=== PATIENT | male | born 1940 | race Hispanic/Latino ===

== ENCOUNTER 2024-05-02 14:51 | Emergency (ER) | payer OTHER ==
--- OUTSIDE RECORDS SUMMARY | 2024-05-02 14:54 | XMS REPORT | Clinical Summary ---
Author Name Unknown Organization [facility] Address [address] [place] [address] Care Team Providers Care Animal Husbandry Teacher Name Role Phone Sarita Mackay MD Primary Care Provider [phone] Smita Kruse MD Unavailable [phone] Isabel Finn Unavailable [phone] Елена Cantu MD Unavailable Torin Patel MD Unavailable [phone] Luis Mcghee MD Unavailable [phone] Yash Moran MD Unavailable [phone] Allergies Active Allergy Reactions Criticality Noted Date Comments Rituximab Itching,Rash Medium 10/31/2017 Itching ,rash to chest,face and axilla. Medications * This document contains information received from the source organization and may not represent a complete record from that organization. aspirin 81 mg EC tablet Take 1 tablet (81 mg) by mouth daily. 022 Active latanoprost (XALATAN) 0.005% ophthalmic solution INSTILL 1 DROP INTO LEFT EYE AT BEDTIME Active levothyroxine (SYNTHROID, LEVOTHROID) 125 mcg tablet Take 0.5 tablets (62.5 mcg) by mouth daily. Active diclofenac sodium (Voltaren) 1 % gel Apply 2 g topically to affected area(s) as needed. 023 Active Eliquis 5 mg tabletIndications :Atrial fibrillation, not otherwise specified TAKE 1 TABLET BY MOUTH EVERY 12 HOURS. 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 10 tablet 024 2024 Active Additional Information Patient not taking.Reason: No longer taking, Informant: Spouse/Significant Other, Reported on 04/29/2024 ciclopirox (PENLAC) 8% solution APPLY AROUND AND UNDER NAILS NIGHTLY AND WASH OFF IN THE MORNING Active urea (CARMOL) 20% cream APPLY TO FEET ONCE DAILY Active icosapent ethyl 1 gram cap Take 2 g by mouth twice daily. Active cholecalciferol, vitamin D3, (Decara) 625 mcg (25,000 unit) cap Take 2,500 Units by mouth every 14 (fourteen) days. Active tamsulosin (FLOMAX) 0.4 mg 24 hr capsule Take 1 capsule (0.4 mg) by mouth daily. Active pitavastatin calcium 4 mg tab Take 4 mg by mouth daily. Active losartan (COZAAR) 50 mg tablet Take 1 tablet (50 mg) by mouth daily. Active finasteride (PROSCAR) 5 mg tablet Take 1 tablet (5 mg) by mouth daily. Active olmesartan (BENICAR) 40 mg tablet Take 1 tablet (40 mg) by mouth daily. 2023 Discontinued(S top Taking at Discharge) ergocalciferol (DRISDOL) 50,000 units capsule Take 1 capsule (50,000 Units) by mouth every 14 (fourteen) days. 2023 Discontinued(T herapy completed) cholecalciferol, vitamin D3, (VITAMIN D3 ORAL) Take 2,500 Units by mouth once a week. 2024 Discontinued(D uplicate order) Vascepa 1 gram cap Icosapent 022 2024 Discontinued(D uplicate order) LORazepam (ATIVAN) 0.5 mg tablet TAKE 1/2 TO 1 TABLET BY MOUTH EVERY DAY NEEDED 023 2023 Discontinued(S top Taking at Discharge) coenzyme [id number] E 100-5 mg-unit cap Take 1 capsule by mouth daily. 2023 Discontinued(S top Taking at Discharge) amLODIPine (NORVASC) 5 mg tabletIndications :Essential (primary) hypertension Take 1 tablet (5 mg) by mouth daily. 30 tablet 6 023 2023 Discontinued(T herapy completed) pravastatin (PRAVACHOL) 40 mg tabletIndications :Dyslipidemia TAKE 1 TABLET BY MOUTH DAILY 90 tablet 1 023 2023 Discontinued(S top Taking at Discharge) hydroCHLOROthiazi de (HYDRODIURIL) 25 mg tabletIndications :Essential (primary) hypertension,Morgan a of lower extremity Take 1 tablet (25 mg) by mouth daily. 30 tablet 6 023 2023 Discontinued(T herapy completed) apixaban (Eliquis) 5 mg tabletIndications :Atrial fibrillation, not otherwise specified Take 1 tablet (5 mg) by mouth every 12 (twelve) hours. 180 tablet 1 023 2023 Discontinued(R eorder) apixaban (Eliquis) 5 mg tabletIndications :Atrial fibrillation, not otherwise specified Take 1 tablet (5 mg) by mouth every 12 (twelve) hours. 180 tablet 024 2023 Discontinued donepezil (ARICEPT) 10 mg tablet 1 TABLET DAILY 024 2023 Discontinued(S top Taking at Discharge) mecobalamin (B12 ACTIVE ORAL) Take 3,000 mg by mouth daily. 2023 Discontinued(S top Taking at Discharge) donepeziL (ARICEPT ODT) 10 MG disintegrating tablet Dissolve 1 tablet (10 mg) on the tongue at bedtime. 2023 Discontinued(S top Taking at Discharge) cyanocobalamin, vitamin B-12, (cyanocobalamin,v it B-12,,bulk,) powd Take 3,000 mcg by mouth. 2024 Discontinued(D uplicate order) Active Problems Problem Noted Date Diagnosed Date Dementia in other diseases classified elsewhere, mild 04/12/2024 Bradycardia 04/10/2024 Hyperbilirubinemia 04/10/2024 Blood coagulation disorder 04/10/2024 B-type natriuretic peptide above reference range 04/10/2024 Hypothyroidism 04/10/2024 Benign prostatic hyperplasia 04/10/2024 Chronic atrial fibrillation 12/22/2023 Assessment & Plan (12/22/2023 2:25 PM CDT): Patient has history of chronic atrial fibrillation. He is not on any AV swathi blocking agents. EKG done in May 2023 and again today showed atrial fibrillation with ventricular rates in the 50s. Remains on Eliquis for anticoagulation purposes. Ventricular rate appears to remain stable and has not required any AV node blocking agents. Continue Eliquis 5 mg BID Peripheral vascular disease 06/23/2023 Assessment & Plan (06/23/2023 11:07 AM SUPPLY TECHNICIAN): Patient with known mild bilateral carotid artery stenosis. Asymptomatic. Continue aspirin and statin. Below-knee PDA status post PTCA February 2022. Has done well since then. Dual antiplatelet therapy used for 6 months. Continue medical therapy with aspirin/statin. Edema of lower extremity 06/23/2023 Assessment & Plan (12/22/2023 2:33 PM CDT): Patient with chronic, minimal lower extremity/ankle edema. Findings suggestive of chronic venous insufficiency related edema. Pt/ report the swelling has resolved since exercising a few days each week. Encouraged to keep legs elevated while sitting and wear compression stockings. Assessment & Plan (06/23/2023 11:11 AM SUPPLY TECHNICIAN): Minimal pitting edema per-ankle area. Chronic skin changes highly suggestive of chronic venous insufficiency related edema. I advised patient and his to use compression stockings. Permanent atrial fibrillation 12/11/2022 Assessment & Plan (06/23/2023 11:08 AM SUPPLY TECHNICIAN): Asymptomatic. Adequate ventricular rate control during episodes of A-fib. No indication for AV blocking agents. Continue apixaban 5 mg twice daily. Assessment & Plan (12/11/2022 11:08 AM CDT): Patient recently diagnosed on EKG 11/13/2022 with atrial fibrillation in the 50s. Asymptomatic for palpitations with reported heart rates in the 50s and low 60s at home. Continue full dose anticoagulation with Eliquis 5 mg p.o. twice daily for [id number] score of 4 (age x 2, CAD/PAD, HTN) Occlusion and stenosis of bilateral carotid julieta kathryn 12/11/2022 Assessment & Plan (12/11/2022 11:09 AM CDT): Patient with known history of peripheral vascular disease being followed by an outside provider. Continue pravastatin 40 mg daily. When patient returns in 6 months we will update lipid panel to see if any titration needs to be done to his statin therapy. Essential (primary) hypertension 10/26/2018 Assessment & Plan (12/22/2023 2:32 PM CDT): Recently, the patient was admitted to an outside facility with COVID-19 and hypotension. Over the past 4 weeks, states that the local PCP instructed them to stop all of his antihypertensive medications. The also stopped his statin therapy because she thought it could lower the blood pressure. states BP readings have been normal since being off of all antihypertensive meds over the past 4 weeks. States SBP has been around 111, 112, and the highest SBP 126. BP was elevated in our clinic today at 153/92; was shocked to see that the reading was elevated today. states K+ has been on the low side and he is taking K-Dur. Patient/ will continue to monitor daily BP and keep a log. They request our team manages his BP going forward. Ok to stay off Norvasc and HCTZ since BP has been normal at home x 4 weeks since recent hospitalization. Encouraged patient/ to resume Benicar 40 mg; 1/2 tablet (20 mg) daily if BP consistently >140/80 Encouraged patient to resume statin as this will not affect his BP readings (hx PAD). Will follow-up in 2 weeks for telemedicine visit to review his BP log; will be present for the visit. Assessment & Plan (06/23/2023 11:10 AM SUPPLY TECHNICIAN): Well-controlled. Continue amlodipine 5 mg daily, olmesartan 40 mg and hydrochlorothiazide 25 mg once daily. Plan for metabolic panel to assess electrolytes/renal function and also lipid profile during return visit to MD Pisano in July 2023. Patient is otherwise will be scheduled for routine follow-up in 6 months. Assessment & Plan (12/11/2022 11:07 AM CDT): Well-controlled blood pressure in the 120s on amlodipine 5 mg (patient takes half a tablet twice daily), hydrochlorothiazide 25 mg daily and olmesartan 40 mg daily. Continue current regimen. Assessment & Plan (11/13/2021 2:27 PM CDT): BP was mildly elevated in the clinic today at 154/74. At home, patient reports good BP control with average SBP around 130. Patient will continue his current regimen of bisoprolol hydrochlorothiazide 5-6.25 mg daily, Benicar 40 mg daily, and Norvasc 5 mg daily. Patient instructed to call our clinic if his BP consistently is >140/80. Assessment & Plan (11/13/2020 10:03 AM CDT): Home blood pressure readings are 130-150 systolic on current medications. He is recommended to continue monitoring his home blood pressures and if they are persistently > 140/80, he is requested to notify our office for management changes. I recommend to continue his current regimen of bisoprolol HCT 5-6.25 mg 1 tab p.o. daily and Benicar 40 mg p.o. daily. No refills needed at this time Assessment & Plan (11/12/2019 12:37 PM CDT): His BP is stable on current medications, but it is on high side of normal. Instructed to continue to monitor his BP. If it should run more > 140/80, then he is to notify our office and will need to titrate his medications for better BP control. Dyslipidemia 10/26/2018 Carotid atherosclerosis 10/26/2018 Assessment & Plan (11/13/2021 2:24 PM CDT): Carotid Doppler done October 2019 showed stable disease. Patient remains asymptomatic. Lipid panel done earlier today revealed an LDL of 77. Triglycerides were 235. Patient was started on Vascepa by his PCP last week. Carotid Dopplers done today are pending results. Continue Livalo 4 mg; 1/2 tab daily and Vascepa which was just ordered by his PCP last week. We will call the patient with his carotid Dopplers results. Will recheck carotid Dopplers on a yearly basis. Assessment & Plan (11/13/2020 10:01 AM CDT): Carotid artery duplex performed 11/10/2019 shows stable disease with no changes from doppler done in the prior year. Patient remains asymptomatic as well. Will plan for fasting lipid panel to be done at his follow up visit and repeat carotid duplex study. I recommend to continue his current management with aspirin 81 mg p.o. every other day, bisoprolol HCT 5-6.25 mg 1 tab p.o. daily, Benicar 40 mg p.o. daily, Livalo 4 mg p.o. daily Assessment & Plan (11/12/2019 12:35 PM CDT): Recent carotid doppler shows no change from doppler done 1 year ago. Patient remains asymptomatic as well. Will continue with medical management with aspirin 81 mg daily and pitavastatin 4 mg daily. Assessment & Plan (10/26/2018 9:16 AM CDT): Asymptomatic noted carotid atherosclerosis by CT scan done in the setting of management of lymphoma. Recommend: -Control hypertension -Obtain carotid duplex study to assess hemodynamic significance of the noted atherosclerotic plaques. -Statin and low-dose aspirin for primary prevention will likely be needed. Dosing and frequency would be decided after reviewing his carotid duplex study and also his recent lipid profile obtained by PCP. Bicuspid aortic valve 10/26/2018 Assessment & Plan (11/13/2021 2:29 PM CDT): Echocardiogram done in 2018 showed possible bicuspid aortic valve. Echocardiogram done today showed normal LVEF 58% and the aortic valve was noted to be trileaflet with no AI or . EKG done today showed sinus bradycardia 59 bpm with chronic first-degree AVB and QTcF 460 ms. Patient/ report his BP has been stable at home; average SBP around 130. Will check echo in 1 year. Assessment & Plan (11/13/2020 9:59 AM CDT): Echocardiogram done in 2018 shows findings consistent with possible bicuspid aortic valve with mild aortic valve thickening. He remains asymptomatic at this time. Will plan for repeat echocardiogram to be done at his follow up visit with fasting lipid panel. I recommend to continue his current management with aspirin 81 mg p.o. every other day, bisoprolol HCT 5-6.25 mg 1 tab p.o. daily, Benicar 40 mg p.o. daily, Livalo 4 mg p.o. daily Assessment & Plan (10/26/2018 9:03 AM CDT): Suspected bicuspid aortic valve based on the prior echocardiogram from 2018. No evidence of valvular dysfunction and no evidence of aortic root dilatation or aneurysmal aorta. Observe. 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 Date Type Department Care Team Description 04/30/2024 Telephone Cardiopulmonary Center [address] [facility], [facility] [place] [address] Madyson Mensah, CHERIE 04/30/2024 Telephone Cardiopulmonary Center [address] [facility] [place] [address] Andrea Campos RN 04/29/2024 10:30 AM SUPPLY TECHNICIAN Office Visit Internal Medicine Center - Geriatric Medicine [address] [facility], 6th [place] [address] Yash Moran MD Permanent atrial fibrillation (Primary Dx); Dementia in other diseases classified elsewhere, mild; Bradycardia; Carotid atherosclerosis; Peripheral vascular disease; Dyslipidemia; Benign prostatic hyperplasia 04/29/2024 Travel 04/29/2024 Telephone Cardiopulmonary Center [address] [facility] [place] [address] Andrea Campos RN 04/15/2024 9:40 AM SUPPLY TECHNICIAN Consult Cardiopulmonary Center [address] [place] [address], 6th [place] [address] Luis Mcghee MD Bradycardia 04/15/2024 Travel 04/09/2024 5:28 PM SUPPLY TECHNICIAN - 04/12/2024 5:50 PM SUPPLY TECHNICIAN Hospital Encounter MAIN [address] [place] [id number] Bear Edwards MD Phyu, MD Jamshid Guillory Magdelene, MD Tanwir, Hira, MD Bradycardia (Primary Dx); 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, not otherwise specified; Dementia in other diseases classified elsewhere, mild Discharge Disposition: Home 04/09/2024 Travel 04/09/2024 Telephone Cardiopulmonary Center [address] [place] [address], 6th [place] [address] Madyson Mensah, CHERIE 04/09/2024 Documentation Cardiopulmonary Center [address] [place] [address], 6th [place] [address] Madyson Mensah, CHERIE 01/21/2024 2:00 PM CDT Telemedicine Cardiopulmonary Center [address] [place] [address], 6th [place] [address] Damari Ojeda APRN Biju, Maria, APRN,AGACNP Paroxysmal atrial fibrillation (Primary Dx); Essential (primary) hypertension; Peripheral vascular disease; Dyslipidemia; Occlusion and stenosis of bilateral carotid arteries 12/22/2023 9:25 AM CDT - 12/22/2023 11:59 PM CDT Hospital Encounter Cardiopulmonary Center [address] [place] [address], 6th [place] [address] Damari Ojeda APRN Paroxysmal atrial fibrillation Discharge Disposition: Home 12/22/2023 8:00 AM CDT Follow-Up Cardiopulmonary Center [address] [place] [address], 6th [place] [address] Torin Patel MD Bailey, Katie, APRN Atrial fibrillation, not otherwise specified (Primary Dx); Essential (primary) hypertension; Edema of lower extremity 12/22/2023 Travel 08/12/2023 2:00 PM CDT Follow-Up Lymphoma and Myeloma Center [facility] Main [facility], 6th [place] [address] Елена Cantu MD 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, not otherwise specified 08/12/2023 9:02 AM CDT - 08/12/2023 11:59 PM CDT Hospital Encounter Main CT IMAGING [address] [facility] Main [facility], 3rd [place] [address] Florin Mcintyre Aprn, SUPERVISOR ELECTRONICS TESTING 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, not otherwise specified Discharge Disposition: Home 08/12/2023 7:33 AM CDT - 08/12/2023 9:01 AM CDT Hospital Encounter Diagnostic Laboratory Center [address] [place] [address] Main [facility], [place] [address] Florin Mcintyre Aprn, SUPERVISOR ELECTRONICS TESTING 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, not otherwise specified Discharge Disposition: Home 08/12/2023 7:33 AM CDT - 08/12/2023 9:01 AM CDT Hospital Encounter Diagnostic Laboratory Center [address] [place] [address] Main [facility], [place] [address] Kemar Lopez PA Essential (primary) hypertension; Occlusion and stenosis of bilateral carotid arteries Discharge Disposition: Home 08/12/2023 Documentation [facility]oma [facility]el[facility] [address] [place] [address] Main [facility], 6th [place] [address] Zenaida Rosas 08/12/2023 Travel 07/29/2023 Refill Cardiopulmonary Center [address] [place] [address] Main [facility], 6th [place] [address] Torin Patel MD Atrial fibrillation, not otherwise specified 06/23/2023 11:40 AM SUPPLY TECHNICIAN Follow-Up Cardiopulmonary Center [address] [place] [address] Main [facility], 6th [place] [address] Torin Patel MD Paroxysmal atrial fibrillation (Primary Dx); Essential (primary) hypertension; Occlusion and stenosis of bilateral carotid arteries; Edema of lower extremity 06/23/2023 11:06 AM SUPPLY TECHNICIAN - 06/23/2023 11:59 PM SUPPLY TECHNICIAN Hospital Encounter Cardiopulmonary Center [facility] Main [facility], 6th [place] [address] Torin Patel MD Essential (primary) hypertension; Paroxysmal atrial fibrillation Discharge Disposition: Home 06/23/2023 Travel 06/06/2023 Documentation Cardiopulmonary Center [address] [place] [address], 6th [place] [address] Staci Cronin RN 06/06/2023 Refill Cardiopulmonary Center [address] [place] [address], 6th [place] [address] Staci Cronin RN Atrial fibrillation, not otherwise specified after 05/03/2023 Immunizations Name Administration Dates Next Due Pfizer SARS-CoV-2 Vaccination (Purple Cap) 11/25 Surgical History Surgery Date Site/Laterality Comments SKIN LESION EXCISION 04/28/2015 - 04/27/2016 Right Skin lesion behind his right ear positive for skin cancer SKIN LESION EXCISION 04/28/2017 - 04/27/2018 Right Positive for lymphoma LYMPH NODE BIOPSY 04/28/2017 - 04/27/2018 Right Positive for lymphoma TRANSURETHRAL RESECTION OF PROSTATE 04/28/1997 - 04/27/1998 Benign REPAIR OF REDUCIBLE INGUINAL HERNIA 04/28/1997 - 04/27/1998 Right AL INSJ TUNNELED CTR VAD W/SUBQ PORT AGE 5 YR/> 10/30/2017 Neck/Right Procedure: PORT-A-CATH PLACEMENT; Surgeon: Michael Zambrano MD; Location: [facility]; Service: THRCV - VASCULAR SURGERY Medical devices from this surgery are in the Medical Devices section. G US VASC ACCESS SITS VSL PATENCY NDL ENTRY 10/30/2017 N/A Procedure: US GUIDANCE WITH EVAL OF POTENTIAL ACCESS SITES, REALTIME US VISUALIZATION OF VASC NEEDLE ENTRY; Surgeon: Michael Zambrano MD; Location: [facility]; Service: THRCV - VASCULAR SURGERY Medical devices from this surgery are in the Medical Devices section. CHG FLUORO CENTRAL VENOUS ACCESS DEV PLACEMENT 10/30/2017 Neck/N/A Procedure: FLUORO GUIDANCE FOR CENTRAL VENOUS ACCESS DEVICE PLACEMENT, REPLACEMENT, OR REMOVAL; Surgeon: Michael Zambrano MD; Location: [facility]; Service: THRCV - VASCULAR SURGERY Medical devices from this surgery are in the Medical Devices section. 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 09/05/2017 Benign prostatic hyperplasia 1998 Essential (primary) hypertension 10/26/2018 Disorder of thyroid gland Squamous cell carcinoma 03/2021 Family History Medical History Relation Name Comments -Gynecology (Ovary, Endometrial, Cervix, Vagina) Mothe r Uterine Relation Name Status Comments Daughter Alive Father (Age 90) from natural causes Half-Sister Alive Mother (Age 50) from uterine cancer Son Alive Social History Tobacco Use Types Packs/Day Years Used Date Smoking Tobacco: Former Cigarettes 0.5 10 1 978 - 1987 Passive Smoke Exposure: Never Smokeless Tobacco: Never Tobacco Cessation:Counseling Given: Not Answered Alcohol Use Standard Drinks/Week Comments No 0 (1 standard drink = 0.6 oz pur e alcohol) Sex and Gender Information Value Date Recorded Sex Assigned at Male 11/10/2020 4:17 PM CDT Legal Sex Male 12:44 PM CDT Gender Identity Male 11/10/2020 4:17 PM CDT Sexual Orientation Not on file 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 [employer] Not on file Not on file Not on file Obstetrics History Last Filed Vital Signs Vital Sign Reading Time Taken Comments Blood Pressure 153/80 04/29/2024 10:11 AM SUPPLY TECHNICIAN Pulse 72 04/29/2024 10:11 AM SUPPLY TECHNICIAN Temperature 36 C (96.8 F) 04/29/2024 10:11 AM SUPPLY TECHNICIAN Respiratory Rate 16 04/29/2024 10:11 AM SUPPLY TECHNICIAN Oxygen Saturation 96% 04/29/2024 10:11 AM SUPPLY TECHNICIAN Inhaled Oxygen Concentration - - Weight 88 kg (194 lb 0.1 oz) 04/29/2024 10:11 AM SUPPLY TECHNICIAN Height 163.4 cm (5' 4.33") 04/09/2024 11:[address] Body Mass Index 32.96 04/09/2024 11:36 PM SUPPLY TECHNICIAN Plan of Treatment Upcoming Encounters Date Type Department Care Team (Late st Contact Info) Description 08/12/2024 8:15 AM CDT Appointment Diagnostic Laboratory Center [address] [place] [id number] Florin Mcintyre Multiple Games Dealer, SUPERVISOR ELECTRONICS TESTING [address] [place] [address] [email or web address] 08/12/2024 8:40 AM CDT Ancillary Procedure CT Imaging [address] [place] [address], 7th [place] [address] Francisco Javier Toddannabellacarolynjanett Multiple Games Dealer, SUPERVISOR ELECTRONICS TESTING [facility] [place] [address] [email or web address] 08/12/2024 1:00 PM CDT Follow-Up Lymphoma and Myeloma Center [address] [place] [address], 6th [place] [address] Елена Cantu MD [address] [place] [id number] [email or web address] 08/27/2024 9:00 AM CDT Office Visit Internal Medicine Center - Geriatric Medicine [address] [place] [address], 6th [place] [address] John Cordova MD [address] [place] [id number] [email or web address] Maintenance Due Date Last Done Comments Pneumococcal Vaccine: 65+ Ye ars (1 of 2 - PCV) 1946 COVID-19 Vaccine ( season) 2023 11/25/2020, 06/22/2020, 05/23/2020 Influenza Vaccine (#1) 2023 Medical Devices Implanted Type Area Assistant Floor Covering Printer Device Identifier Shelf Expiration Date Model / Serial / Lot Kade Baca Isp 6fr - [id number] Implanted:Qty: 1 on 10/30/2017 by Michael Zambrano MD at [facility] Implant Right: Neck BARD PERIPHERAL VASCULAR 02/25/2019 [id number] / / [id number] Procedures Procedure Name Priority Date/Time Associated Diagnosis Comments EKG, 12-LEAD (PORTABLE) STAT 04/15/2024 EKG, 12-LEAD (PORTABLE) STAT 04/13/2024 ECHOCARDIOGRAM 2D COMPLETE STAT 04/12/2024 8:17 AM SUPPLY TECHNICIAN .CBC Routine 04/12/2024 5:28 AM SUPPLY TECHNICIAN PHOSPHORUS LEVEL Routine 04/12/2024 5:28 AM SUPPLY TECHNICIAN MAGNESIUM LEVEL Routine 04/12/2024 5:28 AM SUPPLY TECHNICIAN COMPREHENSIVE METABOLIC PANEL Routine 04/12/2024 5:28 AM SUPPLY TECHNICIAN COMPLETE BLOOD COUNT W/ DIFFERENTIAL Routine 04/12/2024 5:28 AM SUPPLY TECHNICIAN PROTHROMBIN TIME Routine 04/12/2024 5:28 AM SUPPLY TECHNICIAN HOLTER MONITOR - 48 HOUR Routine 04/12/2024 EKG, 12-LEAD (PORTABLE) Routine 04/12/2024 FREE THYROXINE Add-On 04/11/2024 6:09 AM SUPPLY TECHNICIAN THYROID STIMULATING HORMONE Add-On 04/11/2024 6:09 AM SUPPLY TECHNICIAN DIRECT AND INDIRECT BILIRUBIN Routine 04/11/2024 6:09 AM SUPPLY TECHNICIAN .CBC Routine 04/11/2024 6:09 AM SUPPLY TECHNICIAN PHOSPHORUS LEVEL Routine 04/11/2024 6:09 AM SUPPLY TECHNICIAN MAGNESIUM LEVEL Routine 04/11/2024 6:09 AM SUPPLY TECHNICIAN COMPREHENSIVE METABOLIC PANEL Routine 04/11/2024 6:09 AM SUPPLY TECHNICIAN COMPLETE BLOOD COUNT W/ DIFFERENTIAL Routine 04/11/2024 6:09 AM SUPPLY TECHNICIAN PROTHROMBIN TIME Routine 04/11/2024 6:09 AM SUPPLY TECHNICIAN DIRECT AND INDIRECT BILIRUBIN Routine 04/10/2024 4:46 AM SUPPLY TECHNICIAN .CBC Routine 04/10/2024 4:46 AM SUPPLY TECHNICIAN PHOSPHORUS LEVEL Routine 04/10/2024 4:46 AM SUPPLY TECHNICIAN MAGNESIUM LEVEL Routine 04/10/2024 4:46 AM SUPPLY TECHNICIAN COMPREHENSIVE METABOLIC PANEL Routine 04/10/2024 4:46 AM SUPPLY TECHNICIAN COMPLETE BLOOD COUNT W/ DIFFERENTIAL Routine 04/10/2024 4:46 AM SUPPLY TECHNICIAN PROTHROMBIN TIME Routine 04/10/2024 4:46 AM SUPPLY TECHNICIAN HISTORICAL ABORH Routine 04/09/2024 6:01 PM SUPPLY TECHNICIAN XR CHEST 1 VW STAT 04/09/2024 5:56 PM SUPPLY TECHNICIAN NT PRO BNP Add-On 04/09/2024 5:44 PM SUPPLY TECHNICIAN DIRECT AND INDIRECT BILIRUBIN STAT 04/09/2024 5:44 PM SUPPLY TECHNICIAN .CBC STAT 04/09/2024 5:44 PM SUPPLY TECHNICIAN TYPE AND SCREEN Routine 04/09/2024 5:44 PM SUPPLY TECHNICIAN APTT Routine 04/09/2024 5:44 PM SUPPLY TECHNICIAN PROTHROMBIN TIME Routine 04/09/2024 5:44 PM SUPPLY TECHNICIAN CARDIAC PANEL Routine 04/09/2024 5:44 PM SUPPLY TECHNICIAN PHOSPHORUS LEVEL STAT 04/09/2024 5:44 PM SUPPLY TECHNICIAN MAGNESIUM LEVEL STAT 04/09/2024 5:44 PM SUPPLY TECHNICIAN COMPREHENSIVE METABOLIC PANEL STAT 04/09/2024 5:44 PM SUPPLY TECHNICIAN COMPLETE BLOOD COUNT W/ DIFFERENTIAL STAT 04/09/2024 5:44 PM SUPPLY TECHNICIAN EKG, 12-LEAD (SCHEDULED) Routine 12/22/[address] CHEST ABDOMEN PELVIS W CONTRAST LYMPHOMA Routine 08/12/2023 12:42 PM CDT 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, not otherwise specified CT NECK W CONTRAST LYMPHOMA Routine 08/12/2023 12:42 PM CDT 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, not otherwise specified DIFFERENTIAL Routine 08/12/2023 7:51 AM CDT 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, not otherwise specified MDA CP BLSTFL Routine 08/12/2023 7:51 AM CDT 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, not otherwise specified .CBC Routine 08/12/2023 7:51 AM CDT 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, not otherwise specified MAGNESIUM LEVEL Routine 08/12/2023 7:51 AM CDT 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, not otherwise specified LACTATE DEHYDROGENASE Routine 08/12/2023 7:51 AM CDT 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, not otherwise specified FRACTIONATED BILIRUBIN Routine 7:51 AM CDT 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, not otherwise specified URIC ACID Routine 08/12/2023 7:51 AM CDT 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, not otherwise specified PHOSPHORUS LEVEL Routine 08/12/2023 7:51 AM CDT 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, not otherwise specified COMPLETE BLOOD COUNT W/ DIFFERENTIAL Routine 08/12/2023 7:51 AM CDT 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 Jahaira Huizar APRN ECG ORDERABLES Final Resu lt [facility] * Echocardiogram 2D Complete (04/12/2024 8:17 AM SUPPLY TECHNICIAN) EF 56 ISCV 04/12/2024 7:53 AM SUPPLY TECHNICIAN Narrative ISCV - 04/12/2024 1:20 PM SUPPLY TECHNICIAN Echocardiographic Report Interpretation Summary A complete two-dimensional transthoracic echocardiogram was performed (2D, M- mode, Spectral and color Doppler). Compared to prior study dated : 11/13/22, TR is slightly worse, atria are larger, GLS reduced . Normal left ventricular size and systolic function. LV ejection fraction calculated using the bi-plane method of disks is 56 %. The right ventricle is normal in size and function. The left atrium is severely dilated. There is moderate tricuspid regurgitation. Estimated RVSP is 42mmHg. The tricuspid valve regurgitation velocity suggests mild pulmonary hypertension. The inferior vena cava is dilated with decreased respiratory variation. There is no pericardial effusion. Left Ventricle: Normal left ventricular size and systolic function. Relative width thickness measures suggest concentric changes. LV ejection fraction calculated using the bi-plane method of disks is 56 %. The left ventricular wall motion is normal. I WMSI = 1.00 % Normal = 100 GLS = -14.6% (reduced) Segments Size X - Cannot 2 - 1-2 small Interpret 1 - Normal Hypokinetic 3 - Akinetic 4 - Dyskinetic3- 5 moderate 5 - Aneurysmal 6-14 large 15-16 diffuse 3D imaginD volumes were not performed in this study. Cardiac Mechanics/Speckle Tracking Imaging: Strain Imaging was performed; GLPS avg = -14.6%. Abnormal global longitudinal peak systolic value. Diastology: Unable to evaluate due to rhythm. Right Ventricle: The right ventricle is normal in size and function. Atria: The left atrium is severely dilated. Right Atrium is dilated. Mitral Valve: The mitral valve is grossly normal. There is no mitral valve stenosis. There is mild mitral regurgitation. Tricuspid Valve: The tricuspid valve is not well visualized, but is grossly normal. There is moderate tricuspid regurgitation. Estimated RVSP is 42mmHg. The tricuspid valve regurgitation velocity suggests mild pulmonary hypertension. Aortic Valve: Mild aortic valve sclerosis. No hemodynamically significant valvular aortic stenosis. No aortic regurgitation is present. Pulmonic Valve: The pulmonic valve is not well visualized. Mild pulmonic valvular regurgitation. Great Vessels: The aortic root is normal size. The aortic arch is not well visualized. The inferior vena cava is dilated with decreased respiratory variation. Pericardium/Pleural: There is no pericardial effusion. Preliminary Reviewer Preliminary Interpretation: Herman Damon M.D.. MMode/2D Measurements IVSd: 1.3 cm LVIDd: 4.2 cm LVIDs: 3.2 cm LVPWd: 1.3 cm FS: 24.2 % Ao root diam: 3.5 cm Ao root area: 9.7 cm2 LA dimension: 5.3 cm LVOT diam: 2.1 cm EDV(MOD-A4C): 109.1 ml ESV(MOD-A4C): 48.8 ml LVOT area: 3.4 cm2 EF(MOD-A4C): 55.2 % EDV(MOD-A2C): 87.1 ml ESV(MOD-A2C): 36.1 ml EDV(MOD-bp): 98.1 ml EF(MOD-A2C): 58.5 % ESV(MOD-bp): 42.2 ml EF(MOD-bp): 56.9 % LAV(MOD-A2C): 135.6 ml IVC Diam (2D): 2.1 cm LAV(MOD-A4C): 103.8 ml LAV(MOD-bp): 125.4 ml LAV(MOD-bp) Indexed: 64.5 ml/m2 EDV (MOD-bp) Index: 50.5 ml/m2 ESV (MOD-bp) Index: 21.7 ml/m2 RWT: 0.63 cm TAPSE (>1.6): 1.9 cm Doppler Measurements MV E max nathan: 68.7 cm/sec MV V2 max: 77.6 cm/sec MV max P.4 mmHg MV V2 mean: 27.9 cm/sec MV mean P.44 mmHg MV V2 VTI: 21.7 cm MVA(VTI): 2.9 cm2 Ao V2 max: 90.2 cm/sec LV V1 max P.3 mmHg Ao max P.3 mmHg LV V1 mean P.2 mmHg Ao V2 mean: 58.2 cm/sec LV V1 max: 76.6 cm/sec Ao mean P.5 mmHg LV V1 mean: 52.8 cm/sec Ao V2 VTI: 21.0 cm LV V1 VTI: 18.6 cm FANNY(I,D): 3.0 cm2 FANNY(V,D): 2.9 cm2 SV(LVOT): 62.9 ml PA V2 max: 86.1 cm/sec PA max P.0 mmHg PA V2 mean: 47.1 cm/sec PA mean P.0 mmHg PA V2 VTI: 16.6 cm Med Peak E' Nathan: 6.8 cm/sec Lat Peak E' Nathan: 9.5 cm/sec TR max nathan: 261.1 cm/sec RAP systole: 15.0 mmHg TR max P.3 mmHg RVSP(TR): 42.3 mmHg FANNY Index (I,D): 1.5 FANNY Index (V,D): 1.5 Dimensionless Index: 0.85 E/e' (avg): 8.5 E/e' (lat): 7.2 E/e' (sept): 10.1 Procedure Note Luis Mcghee MD - 04/12/2024 Echocardiographic Report Interpretation Summary A complete two-dimensional transthoracic echocardiogram was performed (2D,M- mode, Spectral and color Doppler). Compared to prior study dated :11/13/22, TR is slightly worse, atria are larger, GLS reduced . Normal left ventricular size and systolic function. LV ejection fraction calculated using the bi-plane method of disks is 56%. The right ventricle is normal in size and function. The left atrium is severely dilated. There is moderate tricuspid regurgitation. Estimated RVSP is 42mmHg. The tricuspid valve regurgitation velocity suggests mild pulmonaryhypertension. The inferior vena cava is dilated with decreased respiratory variation. There is no pericardial effusion. Left Ventricle: Normal left ventricular size and systolic function. Relative widththickness measures suggest concentric changes. LV ejection fractioncalculated using the bi-plane method of disks is 56 %. The leftventricular wall motion is normal. I WMSI = 1.00 % Normal = 100 GLS = -14.6% (reduced) Segments Size X - Cannot 2 - 1-2small Interpret 1 - Normal Hypokinetic 3 - Akinetic 4 - Dyskinetic3-5moderate 5 - Aneurysmal6-14 large 15-16 diffuse 3D imaginD volumes were not performed in this study. Cardiac Mechanics/Speckle Tracking Imaging: Strain Imaging was performed; GLPS avg = -14.6%. Abnormal globallongitudinal peak systolic value. Diastology: Unable to evaluate due to rhythm. Right Ventricle: The right ventricle is normal in size and function. Atria: The left atrium is severely dilated. Right Atrium is dilated. Mitral Valve: The mitral valve is grossly normal. There is no mitral valve stenosis.There is mild mitral regurgitation. Tricuspid Valve: The tricuspid valve is not well visualized, but is grossly normal. Thereis moderate tricuspid regurgitation. Estimated RVSP is 42mmHg. Thetricuspid valve regurgitation velocity suggests mild pulmonaryhypertension. Aortic Valve: Mild aortic valve sclerosis. No hemodynamically significant valvularaortic stenosis. No aortic regurgitation is present. Pulmonic Valve: The pulmonic valve is not well visualized. Mild pulmonic valvularregurgitation. Great Vessels: The aortic root is normal size. The aortic arch is not well visualized.The inferior vena cava is dilated with decreased respiratory variation. Pericardium/Pleural: There is no pericardial effusion. Preliminary Reviewer Preliminary Interpretation: Herman Damon M.D.. MMode/2D Measurements IVSd: 1.3 cmLVIDd: 4.2 cm LVIDs: 3.2 cm LVPWd: 1.3 cm FS: 24.2 %Ao root diam: 3.5 cm Ao root area: 9.7 cm2 LA dimension: 5.3 cm LVOT diam: 2.1 cmEDV(MOD-A4C): 109.1 ml ESV(MOD-A4C): 48.8 ml LVOT area: 3.4 cm2EF(MOD-A4C): 55.2 % EDV(MOD-A2C): 87.1 ml ESV(MOD-A2C): 36.1 mlEDV(MOD-bp): 98.1 ml EF(MOD-A2C): 58.5 %ESV(MOD-bp): 42.2 ml EF(MOD-bp): 56.9 % LAV(MOD-A2C): 135.6 mlIVC Diam (2D): 2.1 cm LAV(MOD-A4C): 103.8 ml LAV(MOD-bp): 125.4 ml LAV(MOD-bp) Indexed: 64.5 ml/m2 EDV (MOD-bp) Index: 50.5 ml/m2ESV (MOD-bp) Index: 21.7 ml/m2 RWT: 0.63 cmTAPSE (>1.6): 1.9 cm Doppler Measurements MV E max nathan: 68.7 cm/secMV V2 max: 77.6 cm/sec MV max P.4 mmHg MV V2 mean: 27.9 cm/sec MV mean P.44 mmHg MV V2 VTI: 21.7 cm MVA(VTI): 2.9 cm2 Ao V2 max: 90.2 cm/secLV V1 max P.3 mmHg Ao max P.3 mmHgLV V1 mean P.2 mmHg Ao V2 mean: 58.2 cm/secLV V1 max: 76.6 cm/sec Ao mean P.5 mmHgLV V1 mean: 52.8 cm/sec Ao V2 VTI: 21.0 cmLV V1 VTI: 18.6 cm FANNY(I,D): 3.0 cm2 FANNY(V,D): 2.9 cm2 SV(LVOT): 62.9 mlPA V2 max: 86.1 cm/sec PA max P.0 mmHg PA V2 mean: 47.1 cm/sec PA mean P.0 mmHg PA V2 VTI: 16.6 cm Med Peak E' Nathan: 6.8 cm/secLat Peak E' Nathan: 9.5 cm/sec TR max nathan: 261.1 cm/secRAP systole: 15.0 mmHg TR max P.3 mmHg RVSP(TR): 42.3 mmHg FANNY Index (I,D): 1.5AVA Index (V,D): 1.5 Dimensionless Index: 0.85E/e' (avg): 8.5 E/e' (lat): 7.2E/e' (sept): 10.1 us Bear Edwards MD CV ECHO ORDERABLES Final Res ult ISCV * (ABNORMAL) .CBC (04/12/2024 5:28 AM [facility]) Only the most recent of5 resultswithin the time period is included. White Blood Cell 5.3 4.1 - 10.5 K/uL 04/12/2024 6:12 AM [facility] Red Blood Cell 4.78 4.30 - 6.04 M/uL 04/12/2024 6:12 AM [facility] Hemoglobin 14.5 13.3 - 17.4 g/dL 04/12/2024 6:12 AM [facility] Hematocrit 43.3 39.5 - 51.8 % 04/12/2024 6:12 AM [facility] Mean Cell Volume 91 82 - 99 fL 04/12/20 24 6:12 AM [facility] Mean Cell Hemoglobin 30.3 26.6 - 33.2 pg 04/12/2024 6:12 AM [facility] Mean Cell Hemoglobin Concentration 33.5 31.1 - 35.2 g/dL 04/12/2024 6:12 AM [facility] RDW-SD 49.2 37.5 - 49.7 fL 04/12/2024 6:12 AM [facility] Red Cell Diameter Width 14.9 11.6 - 15.5 % 04/12/2024 6:12 AM [facility] Platelet 124(L) 160 - 397 K/uL 04/12/2024 6:12 AM [facility] Mean Platelet Volume 10.2 9.1 - 12.6 fL 04/12/2024 6:12 AM [facility] INRBC 0.0 0.0 - 0.1 /100 WBC 04/12/2024 6:12 AM [facility] Comment: The INRBC (instrument NRBC) value reflects the enumeration of nucleated red blood cells contained in a 200uL sample of whole blood analyzed by the instrument. This value may differ from the NRBC value reported in a manual differential, which is based on a 100 cell differential. Neutrophil % 55.9 43.2 - 72.7 % 04/12/2024 6:12 AM [facility] Lymphocyte % 28.7 16.8 - 46.2 % 04/12/2024 6:12 AM [facility] Monocyte % 9.9 5.1 - 12.5 % 04/12/2024 6:12 AM [facility] Eosinophil % 3.8 0.4 - 6.3 % 04/12/2024 6:12 AM [facility] Basophil % 1.1 0.2 - 1.4 % 04/12/2024 6:12 AM [facility] IGRE % 0.6 0.1 - 1.5 % 04/12/2024 6:12 AM [facility] Comment:The IGRE% includes M etamyelocytes, Myelocytes and Promyelocytes. Neutrophil Abs 2.94 1.95 - 7.25 K/uL 04/12/2024 6:12 AM [facility] Lymphocyte Abs 1.51 1.01 - 3.24 K/uL 04/12/2024 6:12 AM [facility] Monocyte Abs 0.52 0.24 - 0.85 K/uL 04/12/2024 6:12 AM [facility] Eosinophil Abs 0.20 0.02 - 0.50 K/uL 04/12/2024 6:12 AM [facility] Basophil Abs 0.06 0.02 - 0.09 K/uL 04/12/2024 6:12 AM [facility] IG Abs 0.03 0.01 - 0.12 K/uL 04/12/2024 6:12 AM [facility] Blood Peripheral blood specimen / Unknown Venipuncture / Unknown 04/12/2024 5:28 AM SUPPLY TECHNICIAN 04/12/2024 5:49 AM [facility] us Boogie Breen MD LAB BLOOD ORDERABLES Final Result [facility] Unless otherwise noted, all lab tests performed by: Division of Pathology and Laboratory Medicine [address] [place] [phone] * (ABNORMAL) Comprehensive Metabolic Panel (04/12/2024 5:28 AM [facility]) Only the most recent of5 resultswithin the time period is included. Bilirubin Total 0.7 0.0 - 1.2 mg/dL 04/12/2024 6:21 AM [facility] Comment:Indocyanine Green (I CG) may cause falsely elevated bilirubin results. Total and direct bilirubin must not be measured from samples containing indocyanine green. False elevation of total bilirubin can be seen in patients with IgG concentrations above 28 g/L. eGFR 68 >=60 mL/min/1. 73 sq. m 04/12/2024 6:21 AM [facility] Comment: The eGFRcr is calculated with the 2020 CKD-EPI creatinine equation using creatinine, patient's age, and sex for adults 18 years of age and older. Other factors, especially muscle mass, may affect accuracy and need to be considered. According to the Kidney Disease: Improving Global Outcomes (KDIGO) CKD Work Group 2012 Clinical Practice Guideline, chronic kidney disease (CKD) is defined as the abnormalities of kidney structure or function, present for more than 3 months, with implications for health. CKD should be classified by cause, GFR category, and albuminuria category. KDIGO guidelines provide the following GFR categories. Stage / Description / GFR mL/min/1.73 m2: G1* / Normal or high / >= 90 G2* / Mildly decreased / 60-89 G3a / Mildly to moderately decreased / 45-59 G3b / Moderately to severely decreased / 30-44 G4 / Severely decreased / 15-29 G5 / Kidney failure / <15 *In the absence of evidence of kidney damage, neither G1 nor G2 fulfill criteria for CKD. Tot Protein 6.2(L) 6.4 - 8.3 gm/dL 04/12/2024 6:21 AM [facility] Calcium Level Total 9.0 8.2 - 10.2 mg/dL 04/12/2024 6:21 AM [facility] Alkaline Phosphatase 86 40 - 129 U/L 04/12/2024 6:21 AM [facility] Albumin Level 3.7 3.5 - 5.2 gm/dL 04/12/2024 6:21 AM [facility] AST 29 <=40 U/L 04/12/2024 6:21 AM [facility] ALT 17 <=41 U/L 04/12/2024 6:21 AM [facility] Sodium Level 139 136 - 145 mmol/L 04/12/2024 6:21 AM [facility] Potassium Level 4.3 3.4 - 4.5 mmol/L 04/12/2024 6:21 AM [facility] Chloride 106 98 - 107 mmol/L 04/12/2024 6:21 AM [facility] CO2 26 22 - 29 mmol/L 04/12/2024 6:21 AM [facility] Anion Gap 7 4 - 14 mmol/L 04/12/2024 6:21 AM [facility] Creatinine 1.07 0.67 - 1.17 mg/dL 04/12/2024 6:21 AM [facility] BUN 24(H) 6 - 23 mg/dL 04/12/2024 6:21 AM [facility] Glucose Level 114(H) 70 - 99 mg/dL 04/12/2024 6:21 AM [facility] Comment: Effective 11/22/15, the glucose reference intervals have been updated based on [place] [employer] guidelines (Standards of Medical Care in Diabetes 2016. Diabetes Care 2016; 39: S13-S22). Fasting blood glucose: Normal: 70-99 mg/dL Impaired fasting glucose (increased risk for diabetes or pre-diabetes): 100-125 mg/dL Diabetes mellitus: >/=126 mg/dL Random blood glucose: Normal: 70-199 mg/dL Note: Random glucose >100 mg/dL is associated with increased risk for diabetes. Blood Peripheral blood specimen / Unknown Venipuncture / Unknown 04/12/2024 5:28 AM SUPPLY TECHNICIAN 04/12/2024 5:49 AM SUPPLY TECHNICIAN us Boogie Breen MD LAB BLOOD ORDERABLES Final Result Performing Organization Address [facility] de Phone Number [facility] Unless otherwise noted, all lab tests performed by: Division of Pathology and Laboratory Medicine [address] [place] [phone] * (ABNORMAL) Prothrombin Time with INR (04/12/2024 5:28 AM SUPPLY TECHNICIAN) Only the most recent of4 resultswithin the time period is included. Prothrombin Time 18.0(H) 12.2 - 14.4 second(s) 04/12/2024 6:29 AM SUPPLY TECHNICIAN [facility] International Normalization Ratio 1.52(H) 0.91 - 1.10 04/12/2024 6:29 AM SUPPLY TECHNICIAN [facility] Blood Peripheral blood specimen / Unknown Venipuncture / Unknown 04/12/2024 5:28 AM SUPPLY TECHNICIAN 04/12/2024 5:47 AM SUPPLY TECHNICIAN us Boogie Breen MD LAB BLOOD ORDERABLES Final Result Performing Organization Address City/[facility] Co de Phone Number [facility] Unless otherwise noted, all lab tests performed by: Division of Pathology and Laboratory Medicine [address] [place] [id number] * Phosphorus Level (04/12/2024 5:28 AM SUPPLY TECHNICIAN) Only the most recent of5 resultswithin the time period is included. Phosphorus Level 3.2 2.5 - 4.5 mg/dL 04/12/2024 6:21 AM SUPPLY TECHNICIAN [facility] Blood Peripheral blood specimen / Unknown Venipuncture / Unknown 04/12/2024 5:28 AM SUPPLY TECHNICIAN 04/12/2024 5:49 AM SUPPLY TECHNICIAN Boogie Breen MD LAB BLOOD ORDERABLES Final Result Performing Organization Address [facility] de Phone Number [facility] Unless otherwise noted, all lab tests performed by: Division of Pathology and Laboratory Medicine [address] [place] [phone] * Magnesium Level (04/12/2024 5:28 AM SUPPLY TECHNICIAN) Only the most recent of5 resultswithin the time period is included. Magnesium Level 2.4 1.6 - 2.6 mg/dL 04/12/2024 6:21 AM SUPPLY TECHNICIAN [facility] Blood Peripheral blood specimen / Unknown Venipuncture / Unknown 04/12/2024 5:28 AM SUPPLY TECHNICIAN 04/12/2024 5:49 AM SUPPLY TECHNICIAN Boogie Breen MD LAB BLOOD ORDERABLES Final Result Performing Organization Address [facility] de Phone Number [facility] Unless otherwise noted, all lab tests performed by: Division of Pathology and Laboratory Medicine [address] [place] [phone] * Holter Monitor - 48 hour (04/12/2024) Isabel Perez APRN ECG ORDERABLES Final Re sult Performing Organization Address [facility] Co de Phone Number [facility] * (ABNORMAL) Direct and Indirect Bilirubin (04/11/2024 6:09 AM SUPPLY TECHNICIAN) Only the most recent of3 resultswithin the time period is included. Bilirubin Direct 0.5(H) 0.0 - 0.2 mg/dL 04/11/2024 8:12 AM SUPPLY TECHNICIAN [facility] Bilirubin Indirect 0.8 0.0 - 1.0 mg/dL 04/11/2024 8:12 AM SUPPLY TECHNICIAN [facility] Blood Peripheral blood specimen / Unknown Venipuncture / Unknown 04/11/2024 6:09 AM SUPPLY TECHNICIAN 04/11/2024 6:26 AM SUPPLY TECHNICIAN Boogie Breen MD LAB BLOOD ORDERABLES Final Result Performing Organization Address City/[facility] Co de Phone Number [facility] Unless otherwise noted, all lab tests performed by: Division of Pathology and Laboratory Medicine [address] [place] [phone] * TSH (04/11/2024 6:09 AM SUPPLY TECHNICIAN) Thyroid Stimulating Hormone 3.32 0.27 - 4.20 mcunit/mL 04/11/2024 8:43 AM SUPPLY TECHNICIAN [facility] Blood Peripheral blood specimen / Unknown Venipuncture / Unknown 04/11/2024 6:09 AM SUPPLY TECHNICIAN 04/11/2024 6:26 AM SUPPLY TECHNICIAN Result [facility] Damari Ojeda APRN LAB BLOOD ORDERABLES Final Res ult Performing Organization Address [facility] de Phone Number [facility] Unless otherwise noted, all lab tests performed by: Division of Pathology and Laboratory Medicine [address] [place] [phone] * Free T4 (04/11/2024 6:09 AM SUPPLY TECHNICIAN) T4 (Thyroxine) Free 0.94 0.92 - 1.68 ng/dL 04/11/2024 8:43 AM SUPPLY TECHNICIAN [facility] Blood Peripheral blood specimen / Unknown Venipuncture / Unknown 04/11/2024 6:09 AM SUPPLY TECHNICIAN 04/11/2024 6:26 AM SUPPLY TECHNICIAN Damari Ojeda APRN LAB BLOOD ORDERABLES Final Res ult [facility] Unless otherwise noted, all lab tests performed by: Division of Pathology and Laboratory Medicine [address] [place] [address] * Historical ABORh (04/09/2024 6:01 PM SUPPLY TECHNICIAN) ABORh O POS 04/09/2024 6:02 PM SUPPLY TECHNICIAN [facility] - TRANSFUSION SERVICES Blood Peripheral blood specimen / Unknown 04/09/2024 6:01 PM SUPPLY TECHNICIAN 04/09/2024 6:01 PM SUPPLY TECHNICIAN us Zeeshan Aldana MD BLOOD BANK TEST ORDERAB LES Final Result [facility] - TRANSFUSION SERVICES [facility] [address] [facility] [address] [place] [address] * X-ray Chest 1 View (04/09/2024 5:56 PM SUPPLY TECHNICIAN) Anatomical Region Laterality Modality Chest Digital Radiogra phy 04/09/2024 6:09 PM SUPPLY TECHNICIAN Impressions 04/09/2024 6:15 PM SUPPLY TECHNICIAN Left lower lobe parenchymal opacities concerned about atelectasis versus early left lower lobe pneumonitis new compared to 08/12/2023 ACTIONABLE ITEMS/RECOMMENDATIONS*: None. *An Actionable Finding is a finding that may be unrelated to the original reason for imaging but potentially actionable, meaning further investigation may be necessary. The Actionable Findings Vigilance Unit (AFVU) assists medical providers with responding to additional radiologic findings that are unexpected and potentially actionable. Narrative 04/09/2024 6:15 PM SUPPLY TECHNICIAN FULL RESULT: Examination: XR CHEST 1 VW on 04/09/2024 5:56 PM. Clinical History: Indication: Baseline Chest X-Ray Comparison: Chest and topogram chest 08/12/2023 Technique: Frontal radiograph of the chest Findings: Support Apparatus: External cardiac monitoring leads in place.. Lungs/Pleura/Mediastinum: Linear parenchymal opacities in the left lower lobe retrocardiac area concerned about atelectasis versus early pneumonia this is new findings compared to 08/12/2023. Procedure Note Tavo Duong MD - 04/09/2024 FULL RESULT: Examination: XR CHEST 1 VW on 04/09/2024 5:56 PM. Clinical History: Indication: Baseline Chest X-Ray Comparison: Chest and topogram chest 08/12/2023 Technique: Frontal radiograph of the chest Findings: Support Apparatus: External cardiac monitoring leads in place.. Lungs/Pleura/Mediastinum: Linear parenchymal opacities in the left lowerlobe retrocardiac area concerned about atelectasis versus early pneumoniathis is new findings compared to 08/12/2023. IMPRESSION: Left lower lobe parenchymal opacities concerned about atelectasis versusearly left lower lobe pneumonitis new compared to 08/12/2023 ACTIONABLE ITEMS/RECOMMENDATIONS*: None. *An Actionable Finding is a finding that may be unrelated to the originalreason for imaging but potentially actionable, meaning furtherinvestigation may be necessary. The Actionable Findings Vigilance Unit(AFVU) assists medical providers with responding to additional radiologicfindings that are unexpected and potentially actionable. Zeeshan Aldana MD [facility] DIAGNOSTIC IMAGING ORDERABLES Final Result * Cardiac Panel (04/09/2024 5:44 PM SUPPLY TECHNICIAN) Creatine Kinase 91 39 - 308 U/L 04/09/2024 6:13 PM SUPPLY TECHNICIAN [facility] CKMB 3.3 <=10.4 ng/mL 04/09/2024 6:13 PM SUPPLY TECHNICIAN [facility] Troponin T 17 <=19 ng/L 04/09/2024 6:13 PM SUPPLY TECHNICIAN [facility] Comment: < 19 ng/L Suggest retest at 3 to 6 hours later to rule out myocardial infarction >= 19 to <=52 ng/L Possible myocardial injury. Suggest retest at 3 hours. - a change of < 20 ng/L, retest at 6 hours - a change of >= 20 ng/L, suggestive of myocardial infarction > 52 ng/L Suggestive of myocardial infarction Critical value will be reported when cTnT is > 52 ng/L and only reported for the first in a series. Hemolyzed specimens with Hemolysis Index >100 (100 mg/dl or moderate hemolysis) may cause interferences and falsely low results. Blood Peripheral blood specimen / Unknown Venipuncture / Unknown 04/09/2024 5:44 PM SUPPLY TECHNICIAN 04/09/2024 5:48 PM SUPPLY TECHNICIAN us Zeeshan Aldana MD LAB BLOOD ORDERABLES Fi nal Result Performing Organization Address City/[facility]/ZIP Co de Phone Number [facility] Unless otherwise noted, all lab tests performed by: Division of Pathology and Laboratory Medicine [address] [place] [id number] * (ABNORMAL) aPTT (04/09/2024 5:44 PM SUPPLY TECHNICIAN) Pathologist [facility] Activated PTT 37.2(H) 24.8 - 35.6 second(s) 04/09/2024 6:13 PM SUPPLY TECHNICIAN [facility] Blood Peripheral blood specimen / Unknown Venipuncture / Unknown 04/09/2024 5:44 PM SUPPLY TECHNICIAN 04/09/2024 5:48 PM SUPPLY TECHNICIAN Zeeshan Aldana MD LAB BLOOD ORDERABLES Fi nal Result Performing Organization Address [facility] Co de Phone Number [facility] Unless otherwise noted, all lab tests performed by: Division of Pathology and Laboratory Medicine [address] [place] [phone] * (ABNORMAL) NT-Pro BNP (In-House) (04/09/2024 5:44 PM SUPPLY TECHNICIAN) Pathologist [facility] NT-ProBNP 1,502(H) <=450 pg/mL 04/09/2024 6:54 PM SUPPLY TECHNICIAN [facility] Blood Peripheral blood specimen / Unknown Venipuncture / Unknown 04/09/2024 5:44 PM SUPPLY TECHNICIAN 04/09/2024 5:48 PM SUPPLY TECHNICIAN Bear Edwards MD LAB BLOOD ORDERABLES Final R esult [facility] Unless otherwise noted, all lab tests performed by: Division of Pathology and Laboratory Medicine [address] [place] [id number] * Type and screen (04/09/2024 5:44 PM SUPPLY TECHNICIAN) ABORh O POS 04/09/2024 5:39 PM SUPPLY TECHNICIAN [facility] - TRANSFUSION SERVICES ABSC Negative 04/09/2024 5:39 PM SUPPLY TECHNICIAN [facility] - TRANSFUSION SERVICES Clot Expiration 04/12/2024 23:59 04/09/2024 5:39 PM SUPPLY TECHNICIAN [facility] - TRANSFUSION SERVICES Historical Record Check Complete 04/09/2024 5:39 PM SUPPLY TECHNICIAN [facility] - TRANSFUSION SERVICES Blood Peripheral blood specimen / Unknown Venipuncture / Unknown 04/09/2024 5:44 PM SUPPLY TECHNICIAN 04/09/2024 5:49 PM SUPPLY TECHNICIAN Zeeshan Aldana MD BLOOD BANK TEST ORDERAB LES Final Result [facility] - TRANSFUSION SERVICES [facility] [address] [place] [address] * EKG, 12-Lead (Scheduled) (12/22/2023) Only the most recent of2 resultswithin the time period is included. us Damari Ojeda APRN ECG ORDERABLES Final Result Performing Organization Address City/[facility]/ZIP Co de Phone Number [facility] * CT Chest Abdomen Pelvis with Contrast Lymphoma (08/12/2023 12:42 PM CDT) Anatomical Region Laterality Modality Chest, Abdomen, Pelvis Computed Tomography 08/12/2023 1:02 PM CDT Impressions 08/12/2023 1:35 PM CDT Interval increase in size of the lymph nodes in the right subpectoral region, left axilla, and retroperitoneum. This can be followed with subsequent examination. ACTIONABLE ITEMS/RECOMMENDATIONS*: See impression *An Actionable Finding is a finding that may be unrelated to the original reason for imaging but potentially actionable, meaning further investigation may be necessary. The Actionable Findings Vigilance Unit (AFVU) assists medical providers with responding to additional radiologic findings that are unexpected and potentially actionable. Narrative 08/12/2023 1:35 PM CDT FULL RESULT: Examination: CT CHEST ABDOMEN PELVIS W CONTRAST LYMPHOMA on 08/12/2023 12:42 PM. 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 Technique: CT CHEST ABDOMEN PELVIS W CONTRAST LYMPHOMA. Findings: CHEST: Lines and tubes: None Lower neck/chest wall: A stable 2 x 4.3 cm hypodense nodules in the left thyroid lobe. A 1.1 cm lymph node is seen in the left axilla, image # 14, series # 3, previously 7 mm. A 9 mm lymph node is seen in the subpectoral region on the right, image # 14, series # 3, previously 5 mm. Lungs and Pleura: Subsegmental atelectasis is seen in both lung bases. No suspicious pulmonary nodule. No consolidation. No pleural effusion. Cardiomediastinum: The heart is enlarged. No pericardial effusion. Lymph nodes: No lymphadenopathy. ABDOMEN AND PELVIS: Hepatobiliary: A few subcentimeter hypodense foci are seen in the liver too small to characterize. No suspicious hepatic lesion. No biliary dilatation. No cholecystitis. Spleen: No splenomegaly. Pancreas: No mass or ductal dilatation. Adrenal Glands: No mass. Kidneys, Ureters, Bladder: No hydronephrosis. No suspicious renal lesion. A 5 x 4.6 cm, 1.1 cm, I 1.8 cm cysts are seen in the right kidney. No bladder mass. Gastrointestinal Tract: No obstruction or bowel wall thickening. Normal appendix. Pelvic Organs: The prostate is enlarged measuring at least 10 5.5 x 6.4 cm. Peritoneum/Retroperitoneum: No ascites. Periumbilical ventral hernia is present with herniation of a segment of the omentum. Fat-containing right inguinal hernia is seen. Lymph Nodes: No lymphadenopathy. Subcentimeter lymph nodes are seen periaortic and aortocaval retroperitoneum. There is interval increase in size of the retroperitoneal lymph nodes. For example, a 9 mm lymph node is seen in the periaortic retroperitoneum, image # 97, series # 3, previously 7 mm. MUSCULOSKELETAL: No suspicious skeletal lesion. Degenerative changes are seen in the dorsal spine. Procedure Note Rogelio Sinha MD - 08/12/2023 FULL RESULT: Examination: CT CHEST ABDOMEN PELVIS W CONTRAST LYMPHOMA on :42 PM. Clinical History: Follicular lymphoma grade III of lymph nodes of multiplesites, not otherwise specified Indication: COVID-19 Not Suspected, Restaging Comparison: 08/15/2022. Technique: CT CHEST ABDOMEN PELVIS W CONTRAST LYMPHOMA. Findings: CHEST: Lines and tubes: None Lower neck/chest wall: A stable 2 x 4.3 cm hypodense nodules in the leftthyroid lobe. A 1.1 cm lymph node is seen in the left axilla, image # 14,series # 3, previously 7 mm. A 9 mm lymph node is seen in the subpectoralregion on the right, image # 14, series # 3, previously 5 mm. Lungs and Pleura: Subsegmental atelectasis is seen in both lung bases. Nosuspicious pulmonary nodule. No consolidation. No pleural effusion. Cardiomediastinum: The heart is enlarged. No pericardial effusion. Lymph nodes: No lymphadenopathy. ABDOMEN AND PELVIS: Hepatobiliary: A few subcentimeter hypodense foci are seen in the livertoo small to characterize. No suspicious hepatic lesion. No biliarydilatation. No cholecystitis. Spleen: No splenomegaly. Pancreas: No mass or ductal dilatation. Adrenal Glands: No mass. Kidneys, Ureters, Bladder: No hydronephrosis. No suspicious renal lesion.A 5 x 4.6 cm, 1.1 cm, I 1.8 cm cysts are seen in the right kidney. Nobladder mass. Gastrointestinal Tract: No obstruction or bowel wall thickening. Normalappendix. Pelvic Organs: The prostate is enlarged measuring at least 10 5.5 x 6.4cm. Peritoneum/Retroperitoneum: No ascites. Periumbilical ventral hernia ispresent with herniation of a segment of the omentum. Fat-containing rightinguinal hernia is seen. Lymph Nodes: No lymphadenopathy. Subcentimeter lymph nodes are seenperiaortic and aortocaval retroperitoneum. There is interval increase insize of the retroperitoneal lymph nodes. For example, a 9 mm lymph node isseen in the periaortic retroperitoneum, image # 97, series # 3, previously7 mm. MUSCULOSKELETAL: No suspicious skeletal lesion. Degenerative changes are seen in the dorsalspine. IMPRESSION: Interval increase in size of the lymph nodes in the right subpectoralregion, left axilla, and retroperitoneum. This can be followed withsubsequent examination. ACTIONABLE ITEMS/RECOMMENDATIONS*: See impression *An Actionable Finding is a finding that may be unrelated to the originalreason for imaging but potentially actionable, meaning furtherinvestigation may be necessary. The Actionable Findings Vigilance Unit(AFVU) assists medical providers with responding to additional radiologicfindings that are unexpected and potentially actionable. [employer]in [employer] Francisco Javier SUPERVISOR ELECTRONICS TESTING IMG CT ORDERABLE S Final Result * CT Neck with Contrast Lymphoma (08/12/2023 12:42 PM CDT) Anatomical Region Laterality Modality Neck Computed Tomogra phy 08/12/2023 4:22 PM CDT Impressions 08/12/2023 4:26 PM CDT No worrisome cervical lymphadenopathy. No acute sinusitis. Low lying left-sided thyroid nodule, stable. Narrative 08/12/2023 4:26 PM CDT FULL RESULT: Examination: CT NECK W CONTRAST LYMPHOMA on 08/12/2023 12:42 PM. 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 TECHNIQUE: CT neck with IV contrast was performed. FINDINGS: Lymph nodes: Small volume supraclavicular lymph nodes are present but stable and not worrisome in imaging appearance. Other findings: The upper aerodigestive tract is unremarkable. Bilateral retropharyngeal carotid arteries are present due to vascular tortuosity. The major salivary glands are unremarkable. The thyroid gland shows a dominant left-sided nodule of about 46 x 23 mm, stable and low lying. Further investigation (with ultrasound as clinically indicated. The visualized paranasal sinuses are predominantly clear. The cervical arteries and veins are patent. The visualized brain parenchyma is unremarkable. The visualized lung apices are clear. There are degenerative changes in the cervical spine. Procedure Note Vin Whitehead MD - 08/12/2023 FULL RESULT: Examination: CT NECK W CONTRAST LYMPHOMA on 08/12/2023 12:42 PM. CLINICAL HISTORY: Follicular lymphoma grade III of lymph nodes of multiplesites, not otherwise specified INDICATION: Restaging COMPARISON: 08/15/2022. TECHNIQUE: CT neck with IV contrast was performed. FINDINGS: Lymph nodes: Small volume supraclavicular lymph nodes are present but stable and notworrisome in imaging appearance. Other findings: The upper aerodigestive tract is unremarkable. Bilateral retropharyngealcarotid arteries are present due to vascular tortuosity. The major salivary glands are unremarkable. The thyroid gland shows a dominant left-sided nodule of about 46 x 23 mm,stable and low lying. Further investigation (with ultrasound as clinicallyindicated. The visualized paranasal sinuses are predominantly clear. The cervical arteries and veins are patent. The visualized brain parenchyma is unremarkable. The visualized lung apices are clear. There are degenerative changes in the cervical spine. IMPRESSION: No worrisome cervical lymphadenopathy. No acute sinusitis. Low lying left-sided thyroid nodule, stable. Florin Mcintyre APRN IMG CT ORDERABLE S Final Result * [facility] CP BLSTFL (08/12/2023 7:51 AM CDT) Blood Venipuncture / Unknown 08/12/2023 7:51 AM CDT 08/12/2023 7:55 AM CDT Florin Mcintyre APRN LAB BLOOD ORDERA BLES Final Result [facility] Unless otherwise noted, all lab tests performed by: Division of Pathology and Laboratory Medicine [address] [place] [phone] * Fractionated Bilirubin (08/12/2023 7:51 AM CDT) Bilirubin Direct 0.3 0.0 - 0.3 mg/dL 08/12/2023 8:35 AM CDT [facility] Comment:Indocyanine Green (I CG) may cause falsely elevated bilirubin results. Total and direct bilirubin must not be measured from samples containing indocyanine green. Bilirubin Indirect 0.7 0.0 - 0.9 mg/dL 08/12/2023 8:35 AM CDT [facility] Bilirubin Total 1.0 0.0 - 1.2 mg/dL 08/12/2023 8:35 AM CDT [facility] Comment: Indocyanine Green (ICG) may cause falsely elevated bilirubin results. Total and direct bilirubin must not be measured from samples containing indocyanine green. False elevation of total bilirubin can be seen in patients with IgG concentrations above 28 g/L. Indocyanine Green (ICG) may cause falsely elevated bilirubin results. Total and direct bilirubin must not be measured from samples containing indocyanine green. False elevation of total bilirubin can be seen in patients with IgG concentrations above 28 g/L. Blood Venipuncture / Unknown 08/12/2023 7:51 AM CDT 08/12/2023 7:55 AM CDT us [employer] Francisco Javier SUPERVISOR ELECTRONICS TESTING LAB BLOOD ORDERA BLES Final Result [facility] Unless otherwise noted, all lab tests performed by: Division of Pathology and Laboratory Medicine [address] [place] [phone] * (ABNORMAL) Differential (08/12/2023 7:51 AM CDT) Total Cells 115 08/12/2023 9:07 AM CDT [facility] Manual Neutrophil % 53.0 43.2 - 72.7 % 08/12/2023 9:07 AM CDT [facility] Comment:The Neutrophil count includes Bands. Manual Lymphocyte % 32.0 16.8 - 46.2 % 08/12/2023 9:07 AM CDT [facility] Manual Monocyte % 9.0 5.1 - 12.5 % 08/12/2023 9:07 AM CDT [facility] Manual Eosinophil % 3.0 0.4 - 6.3 % 08/12/2023 9:07 AM CDT [facility] Manual Basophil % 2.0(H) 0.2 - 1.4 % 08/12/2023 9:07 AM CDT [facility] Metamyelocyte % 1.0(H) <=0.0 % 9:07 AM CDT [facility] Comment:The Metamyelocyte co unt includes Myelocytes. Manual Neutrophil Abs 2.76 1.95 - 7.25 K/uL 08/12/2023 9:07 AM CDT [facility] Manual Lymphocyte Abs 1.66 1.01 - 3.24 K/uL 08/12/2023 9:07 AM CDT [facility] Manual Monocyte Abs 0.47 0.24 - 0.85 K/uL 08/12/2023 9:07 AM CDT [facility] Manual Eosinophil Abs 0.16 0.02 - 0.50 K/uL 08/12/2023 9:07 AM CDT [facility] Manual Basophil Abs 0.10(H) 0.02 - 0.09 K/uL 08/12/2023 9:07 AM CDT [facility] RBC Morphology PRESENT 08/12/2023 9:07 AM CDT [facility] Poikilocytosis Present(A) (none) 08/12/2023 9:07 AM CDT [facility] Ovalocyte Present(A) (none) 08/12/2023 9:07 AM CDT [facility] Slide Comment SEE NOTE 08/12/2023 9:07 AM CDT [facility] Comment:PLT: Platelet morpho logy normal with occasional giant platelets seen Blood Venipuncture / Unknown 08/12/2023 7:51 AM CDT 08/12/2023 7:55 AM CDT Florin Mcintyre SUPERVISOR ELECTRONICS TESTING LAB BLOOD ORDERA BLES Final Result [facility] Unless otherwise noted, all lab tests performed by: Division of Pathology and Laboratory Medicine [address] [place] [phone] * (ABNORMAL) Uric Acid (08/12/2023 7:51 AM CDT) Uric Acid 7.5(H) 3.4 - 7.0 mg/dL 08/12/2023 8:35 AM CDT [facility] Blood Venipuncture / Unknown 08/12/2023 7:51 AM CDT 08/12/2023 7:55 AM CDT Florin Mcintyre APRN LAB BLOOD ORDERA BLES Final Result Performing Organization Address [facility] de Phone Number [facility] Unless otherwise noted, all lab tests performed by: Division of Pathology and Laboratory Medicine [address] [place] [phone] * LDH (08/12/2023 7:51 AM CDT) [facility] LDH 150 135 - 225 U/L 08/12/2023 8:35 AM CDT [facility] Blood Venipuncture / Unknown 08/12/2023 7:51 AM CDT 08/12/2023 7:55 AM CDT Narrative [facility] - 08/12/2023 8:35 AM CDT Results greater than 1651 U/L may not be reliable due to matrix effect with extended dilution as it exceeds the life tester outboard motors's recommended limit. Caution should be exercised when interpreting such values and done in conjunction with clinical context. Florin Mcintyre APRN LAB BLOOD ORDERA BLES Final Result Performing Organization Address [facility] de Phone Number [facility] Unless otherwise noted, all lab tests performed by: Division of Pathology and Laboratory Medicine [address] [place] [phone] * (ABNORMAL) Lipid panel (08/12/2023 7:51 AM CDT) [facility] Cholesterol Total 141 <=199 mg/dL 08/12/2023 8:35 AM CDT [facility] Comment: ATP III Classification of Total Cholesterol - Primary Target of Therapy (in mg/dL): <200 Desirable 200-239 Borderline high >=240 High Triglyceride 128 <=149 mg/dL 08/12/2023 8:35 AM CDT [facility] Comment: ATP III Classification of Serum Triglycerides Primary Target of Therapy (in mg/dL): <150 Normal 150-199 Borderline high 200-499 High >=500 Very high Non-fasting triglycerides >200 mg/dL may be followed up with a fasting Lipid Panel. Calculated LDL-C may be falsely decreased when non-fasting triglycerides >200 mg/dL. HDL Cholesterol 35(L) >=40 mg/dL 08/12/2023 8:35 AM CDT [facility] LDL Cholesterol 80 <=100 mg/dL 08/12/2023 8:35 AM CDT [facility] Comment: ATP III Classification of LDL Cholesterol Primary Target of Therapy (in mg/dL): <100 Optimal 100-129 Near optimal/above optimal 130-159 Borderline high 160-189 High >=190 Very high Very Low Density Lipoprotein 26 mg/dL 08/12/2023 8:35 AM CDT [facility] Is patient fasting? Yes 08/11 8:35 AM CDT [facility] Blood Venipuncture / Unknown 08/12/2023 7:51 AM CDT 08/12/2023 7:55 AM CDT us Kemar LIN LAB BLOOD ORDERABLES Final Res ult [facility] Unless otherwise noted, all lab tests performed by: Division of Pathology and Laboratory Medicine [address] [place] [phone] after 05/03/2023 Insurance [facility] MEDICARE ADVANTAGE [facility] MEDICARE ADVANTAGE Member Subscriber Plan / Payer (Ef fective 2020-Present) Name:Lon Romero Relation to Subscriber:Self Name:Lon Romero Payer ID:[id number] (NAIC) Type:Medicare Address: [place] [id number] [employer] MEDICARE ADVANTAGE Advance Directives * Full Code (Latest Code Status on File) Date Activated Date Inactivated Comments 04/09/2024 9:32 PM 04/12/2024 7:50 PM Care Teams Animal Husbandry Teacher Relationship Specialty Start Date End Date Sarita Mackay MD [address] [place] [phone] [email or web address] PCP - General Dermatology 08/27/17 Smita Kruse MD [facility] [id number] [email or web address] PCP - External Referring Internal Medicine 08/27/17 Isabel Finn PA [address] [place] [phone] [email or web address] Physician Pulpit Operator Surgical Oncology 10/27/17 Елена Cantu MD [address] [place] [phone] [email or web address] Consulting Physician Lymphoma and Myeloma 09/05/17 Torin Patel MD [address] [place] [phone] [email or web address] Consulting Physician Cardiology 10/26/18 Luis Mcghee MD [address] [place] [phone] [email or web address] Consulting Physician Cardiology 04/15/24 Yash Moran MD [address] [place] [phone] [email or web address] Consulting Physician Internal Medicine 04/29/24
[2024-05-02 15:43] LABS: Specific Gravity 1.013 (1.005-1.030); Sqamous Epithelial <5 /HPF (None Seen); Urine Bacteria None Seen /HPF (<20); Urine Bilirubin NEGATIVE (Negative); Urine Blood 3+ (OVER) (Negative); Urine Clarity Turbid (Clear); Urine Color Light-Yellow (Yellow); Urine Crystals Unidentified Few /HPF (None Seen); Urine Culture Reflex Order NOT NEEDED; Urine Glucose NEGATIVE (Negative); Urine Ketones NEGATIVE (Negative); Urine Microscopic Reflex YN ORDER UMIC; Urine Mucus Slight /HPF (None Seen); Urine Nitrite NEGATIVE (Negative); Urine Protein NEGATIVE (Negative); Urine RBC >50 /HPF (None Seen); Urine Urobilinogen Normal (Normal); Urine WBC <5 /HPF (<5)
[2024-05-02] MEDS ORDERED: NA CHLORIDE 0.9% 1,000 ML ONE (16:13)
[2024-05-02] MEDS ORDERED: ONDANSETRON 4 MG/2 ML VIAL ONE (16:13)
[2024-05-02] MEDS ORDERED: CEFTRIAXONE 1000 MG/VIAL ONE (16:13)
[2024-05-02 16:16] LABS: Absolute Basophils 0.1 K/uL (0-0.5); Absolute Eosinophils 0.2 K/uL (0-0.5); Absolute Lymphocytes (CBC) 1.5 K/uL (0.7-4.9); Absolute Monocytes 0.6 K/uL (0.1-1.3); Absolute Neutrophil 4.2 K/uL (1.8-8.0); Basophils % 0.9 % (0-1.3); Eosinophils % 2.4 % (0-4.4); Hematocrit 44.3 % (39.6-49.0); Hemoglobin 15.1 g/dL (13.6-17.9); Lymphocytes % 22.6 % (15.3-44.8); MCH 31.2 pg (27.0-35.0); MCHC 34.1 g/dL (32.0-36.0); MCV 91.4 fL (80-100); MPV 7.8 fL (7.6-11.3); Monocytes % 9.1 % (3.3-12.3); Nucleated Red Blood Cells % 0.1 % (0-0); Platelets 166 thou/uL (152-406); RBC Red Blood Cell Count 4.84 M/uL (4.33-5.43); Red Cell Distribution Width 14.9 % (12.1-15.2)
[2024-05-02 16:35] LABS: Albumin 3.6 g/dL (3.4-5.0); Anion Gap 8.4 mEq/L (5.0-15.0); Bilirubin Total 1.9 mg/dL (0.2-1.0); Globulin 3.5 g/dL (2.3-3.5); Potassium 3.4 mEq/L (3.5-5.1); Protein, Total 7.1 g/dL (6.4-8.2)
--- NOTE | 2024-05-02 16:48 | RAD REPORT ---
EXAMINATION: Stone Protocol CLINICAL INDICATION: Abdominal pain TECHNIQUE: CT abdomen and pelvis was performed, without IV contrast, as per department protocol. Oral contrast not given. Axial, sagittal and coronal reconstructions were obtained. One or more of the following dose reduction techniques were used: Automated exposure control, adjustment of the mA and k V according to the patient size, and iterative reconstruction. Unless otherwise specified, incidental findings do not require dedicated imaging follow-up. COMPARISON: No prior exam. FINDINGS: The lack of intravenous and oral contrast limits the sensitivity of this exam for evaluation of solid visceral organs, vascular structures, and bowel A renal calculus not seen. No ureteral calculus. A bladder calculus not noted. No hydronephrosis. Timoteo al cysts. Largest right kidney 5.2 cm. Prostate gland is moderately to markedly enlarged. Asymmetric prostatic tissue abuts the right suction dredge dumping supervisor ior aspect of the bladder. There appears to have been a TURP.. Bladder distention Small left and [id number] right inguinal hernias containing fat. Small to moderate umbilical h ernia. Atherosclerosis Liver, spleen, pancreas and adrenals grossly normal No evidence of diverticulitis. Cardiomegaly IMPRESSION: Negative for a genitourinary calculus Asymmetric prostatic tissue abuts the right posterior aspect of the bladder. This may represent prost atic hypertrophy. Neoplasm can also have this appearance.
[2024-05-02 17:05] LABS: PT Prothrombin Time 19.4 SECONDS (9.4-12.5); Protime INR 1.76
--- NOTE | 2024-05-02 17:47 | EDPHYS ---
Physician Documentation [facility] Name: Lon Romero Age: 83 yrs Sex: Male : 1940 Arrival Date: 05/02/2024 Time: 14:51 Bed 15 Private MD: ED Physician Mio Pisano HPI: 05/02 17:40 This 83 yrs old Male presents to ER via Ambulatory with complaints of Blood in balbir urine. 17:40 The patient presents with urinary symptoms, dysuria, urinary frequency, hesitancy to balbir initiate urine stream. Onset: The symptoms/episode began/occurred 3 day(s) ago. Modifying factors: The symptoms are alleviated by nothing, the symptoms are aggravated by nothing. Associated signs and symptoms: The patient has no apparent associated signs or symptoms. Severity of symptoms: At their worst the symptoms were mild, in the emergency department the symptoms are unchanged. The patient has experienced similar episodes in the past, multiple times. Historical: - Allergies: 15:18 Unknown Blood Thinner; cm10 - Home Meds: 15:18 pitavastatin calcium 4 mg oral tablet 1 tab daily [Active]; tamsulosin 0.4 mg oral cm10 capsule [Active]; icosapent ethyl 1 gram oral capsule 2 caps 2 times per day [Active]; levothyroxine 125 mcg tablet 0.5 tabs daily [Active]; finasteride 5 mg oral tablet 1 tab daily [Active]; aspirin 81 mg Oral tablet, delayed release (enteric coated) [Active]; Eliquis 5 mg oral tablet 1 tab every 12 hours [Active]; Decara 625 mcg (25,000 unit) oral capsule 1 cap every 2 weeks [Active]; losartan 50 mg oral tablet 1 tab daily [Active]; - PMHx: 15:18 Enlarged Prostate; Hypertensive disorder; Hypothyroidism; Elevated Triglycerides; cm10 Hypercholesterolemia; - PSHx: 15:18 Cardiac Stents; cm10 - Immunization history:: Adult Immunizations up to date. - Infectious Disease History:: Denies. - Social history:: Smoking status: unknown. - Family history:: not pertinent. ROS: 17:40 Constitutional: Negative for fever, chills, and weight loss, Eyes: Negative for injury, balbir pain, redness, and discharge, ENT: Negative for injury, pain, and discharge, Neck: Negative for injury, pain, and swelling, Cardiovascular: Negative for chest pain, palpitations, and edema, Respiratory: Negative for shortness of breath, cough, wheezing, and pleuritic chest pain, Abdomen/GI: Negative for abdominal pain, nausea, vomiting, diarrhea, and constipation, Back: Negative for injury and pain, MS/Extremity: Negative for injury and deformity, Skin: Negative for injury, rash, and discoloration, Neuro: Negative for headache, weakness, numbness, tingling, and seizure, Psych: Negative for depression, anxiety, suicide ideation, homicidal ideation, and hallucinations, Allergy/Immunology: Negative for hives, rash, and allergies, Endocrine: Negative for neck swelling, polydipsia, polyuria, polyphagia, and marked weight changes, Hematologic/Lymphatic: Negative for swollen nodes, abnormal bleeding, and unusual bruising, 17:40 : Positive for urinary frequency, hematuria, burning with urination, difficulty urinating, Exam: 17:40 Constitutional: This is a well developed, well nourished patient who is awake, alert, balbir and in no acute distress. Head/Face: Normocephalic, atraumatic. Eyes: Pupils equal round and reactive to light, extra-ocular motions intact. Lids and lashes normal. Conjunctiva and sclera are non-icteric and not injected. Cornea within normal limits. Periorbital areas with no swelling, redness, or edema. ENT: Nares patent. No nasal discharge, no septal abnormalities noted. Tympanic membranes are normal and external auditory canals are clear. Oropharynx with no redness, swelling, or masses, exudates, or evidence of obstruction, uvula midline. Mucous membranes moist. Neck: Trachea midline, no thyromegaly or masses palpated, and no cervical lymphadenopathy. Supple, full range of motion without nuchal rigidity, or vertebral point tenderness. No Meningismus. Chest/axilla: Normal chest wall appearance and motion. Nontender with no deformity. No lesions are appreciated. Cardiovascular: Regular rate and rhythm with a normal S1 and S2. No gallops, murmurs, or rubs. Normal PMI, no JVD. No pulse deficits. Respiratory: Lungs have equal breath sounds bilaterally, clear to auscultation and percussion. No rales, rhonchi or wheezes noted. No increased work of breathing, no retractions or nasal flaring. Abdomen/GI: Soft, non-tender, with normal bowel sounds. No distension or tympany. No guarding or rebound. No evidence of tenderness throughout. Back: No spinal tenderness. No costovertebral tenderness. Full range of motion. Skin: Warm, dry with normal turgor. Normal color with no rashes, no lesions, and no evidence of cellulitis. MS/ Extremity: Pulses equal, no cyanosis. Neurovascular intact. Full, normal range of motion., bilateral aka Neuro: Awake and alert, GCS 15, oriented to person, place, time, and situation. Cranial nerves II-XII grossly intact. Motor strength 5/5 in all extremities. Sensory grossly intact. Cerebellar exam normal. Normal gait. Psych: Awake, alert, with orientation to person, place and time. Behavior, mood, and affect are within normal limits. 17:40 : CVA tenderness, is absent, Male external genitalia: normal, Bladder: distension, that is moderate, Sexual behavior: the patient is not sexually active, Vital Signs: 15:23 BP 167 / 91; Pulse 57; Resp 15; Temp 98.3; Pulse Ox 95% on R/A; Weight 84.82 kg; Height cm10 5 ft. 4 in. ; Pain 0/10; 16:16 BP 149 / 75; Pulse 60; Resp 16 S; Pulse Ox 98% on R/A; kc6 17:50 BP 147 / 82; Pulse 55; Resp 16 S; Pulse Ox 95% on R/A; kc6 15:23 Body Mass Index 32.10 (84.82 kg, 162.56 cm) cm10 15:23 Pain Scale: Adult cm10 MDM: 15:21 Medical Screening Exam initiated balbir 17:42 Differential diagnosis: nonspecific abdominal pain, UTI, urinary retention, Savage balbir catheter problem, prostatitis, urethritis. Data reviewed: vital signs, nurses notes, lab test result(s), radiologic studies, CT scan. Consideration of Admission/Observation Escalation of care including admission/observation considered. I considered the following discharge prescriptions or medication management in the emergency department Medications were administered in the Emergency Department. See MAR. Independent interpretation of the following test(s) in the Emergency Department CT Scan: My interpretation is CT STONE. Test considered but Not performed: Ultrasound NO ABD USG. Historians other than the Patient: Spouse/Significant Other: WELL INFORMED. Care significantly affected by the following chronic conditions: Hypertension, Obesity, STENTS 2020, HYPOTHYROID, BPH. 05/02 15:23 Order name: CBC with Diff; Complete Time: 17:28 [facility] 05/02 15:23 Order name: CMP; Complete Time: 17:28 [facility] 05/02 15:23 Order name: Lipase; Complete Time: 17:28 [facility] 05/02 15:23 Order name: Urinalysis w/ reflexes; Complete Time: 15:59 [facility] 05/02 15:24 Order name: Urine Culture [facility] 05/02 15:24 Order name: PT-INR; Complete Time: 17:28 [facility] 05/02 15:24 Order name: CT Stone Protocol; Complete Time: 17:28 [facility] 05/02 15:24 Order name: IV Saline Lock; Complete Time: 16:16 [facility] 05/02 15:24 Order name: Labs collected and sent; Complete Time: 16:16 [facility] 05/02 17:38 Order name: Bladder Scanner: PVR; Complete Time: 18:02 [facility] 05/02 17:38 Order name: Savage; Complete Time: 18:17 [facility] 05/02 17:39 Order name: Leg Bag; Complete Time: 19:05 [facility] Administered Medications: 16:36 Drug: Ondansetron IVP 4 mg IVP once; over 2 minutes Route: IVP; Site: right antecubital;kc6 16:59 Follow up: Response: No adverse reaction [facility] 16:36 Drug: NS 0.9% IV 500 ml 500 ml IV at 1 bolus once; to be given as a bolus over 30 kc6 minutes Volume: 500 ml; Route: IV; Rate: 1 bolus; Site: right antecubital; 19:05 Follow up: Response: No adverse reaction; IV Status: Completed infusion; IV Intake: kc6 500ml 16:37 Drug: Rocephin IV 1 grams IV at per protocol once; Given slow IV push per pharmacy kc6 instructions Route: IV; Rate: per protocol; Site: right antecubital; 19:05 Follow up: Response: No adverse reaction; IV Status: Completed infusion; IV Intake: [id number] Disposition Summary: 05/02/24 17:46 Discharge Ordered Notes: Location: Home balbir Problem: new balbir Symptoms: have improved balbir Condition: Stable balbir Diagnosis - Hematuria, unspecified balbir - Other retention of urine 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 balbir Followup: balbir - With: Private Physician - When: 2 - 3 days - Reason: Recheck today's complaints, Continuance of care, Re-evaluation by your physician Discharge Instructions: - Discharge Summary Sheet balbir - Indwelling Urinary Catheter Care, Adult balbir - Hematuria, Adult balbir - Acute Urinary Retention, Male, [id number] balbir - Indwelling Urinary Catheter Care, Adult, [id number] balbir - Indwelling Urinary Catheter Insertion balbir Forms: - Medication Reconciliation Form balbir - Antibiotic Education balbir - Prescription Opioid Use balbir - Patient Portal Instructions balbir - Leadership Thank You Letter [facility] Prescriptions: - Flomax 0.4 mg Oral capsule - take 1 capsule ORAL route once; 30 capsule; Refills: 0, Product Selection balbir Permitted - Cipro 250 mg Oral tablet - take 1 tablet ORAL route every 12 hours; 14 tablet; Refills: 0, Product balbir Selection Permitted Signatures: Dispatcher [employer] Mio Rodríguez MD MD cha Campbell, Kaitlyn RN RN kc6 Ginger Gomez RN RN cm10
--- NOTE | 2024-05-02 17:47 | ER ---
Nurse's Notes [facility] Name: Lon Romero Age: 83 yrs Sex: Male : 1940 Arrival Date: 05/02/2024 Time: 14:51 Bed 15 Private MD: Diagnosis: Hematuria, unspecified;Other retention of urine;longterm (current) use of anticoagulants Presentation: 05/02 15:23 Chief complaint: Patient states: Blood in urine onset yesterday. No blood clots. Pt cm10 states that he has some burning with urination. Coronavirus screen: Client denies travel out of the [place] in the last 14 days. Ebola Screen: Patient denies travel to an Ebola-affected area in the 21 days before illness onset. Initial Sepsis Screen: Does the patient meet any 2 criteria? No. Patient's initial sepsis screen is negative. Does the patient have a suspected source of infection? No. Patient's initial sepsis screen is negative. Risk Assessment: Do you want to hurt yourself or someone else? Patient reports no desire to harm self or others. Onset of symptoms was May 01, 2024. 15:23 Method Of Arrival: Ambulatory cm10 15:23 Acuity: ESAU 3 cm10 Triage Assessment: 15:24 General: Appears in no apparent distress. comfortable, Behavior is calm, cooperative. cm10 Neuro: No deficits noted. Level of Consciousness is awake, alert, obeys commands, Oriented to person, place, time, situation, Appropriate for age. Respiratory: No deficits noted. Airway is patent Respiratory effort is even, unlabored, Respiratory pattern is regular, symmetrical. Historical: - Allergies: 15:18 Unknown Blood Thinner; cm10 - Home Meds: 15:18 pitavastatin calcium 4 mg oral tablet 1 tab daily [Active]; tamsulosin 0.4 mg oral cm10 capsule [Active]; icosapent ethyl 1 gram oral capsule 2 caps 2 times per day [Active]; levothyroxine 125 mcg tablet 0.5 tabs daily [Active]; finasteride 5 mg oral tablet 1 tab daily [Active]; aspirin 81 mg Oral tablet, delayed release (enteric coated) [Active]; Eliquis 5 mg oral tablet 1 tab every 12 hours [Active]; Decara 625 mcg (25,000 unit) oral capsule 1 cap every 2 weeks [Active]; losartan 50 mg oral tablet 1 tab daily [Active]; - PMHx: 15:18 Enlarged Prostate; Hypertensive disorder; Hypothyroidism; Elevated Triglycerides; cm10 Hypercholesterolemia; - PSHx: 15:18 Cardiac Stents; cm10 - Immunization history:: Adult Immunizations up to date. - Infectious Disease History:: Denies. - Social history:: Smoking status: unknown. - Family history:: not pertinent. Screenin:17 [facility] ED Fall Risk Assessment (Adult) History of falling in the last 3 months, kc6 including since admission No falls in past 3 months (0 pts) Confusion or Disorientation No (0 pts) Intoxicated or Sedated No (0 pts) Impaired Gait No (0 pts) Mobility Assist Device Used No (0 pt) Altered Elimination No (0 pt) Score/Fall Risk Level 0 - 2 = Low Risk Oriented to surroundings, Maintained a safe environment, Educated pt \T\ family on fall prevention, incl call for assistance when getting out of bed. Abuse screen: Denies threats or abuse. Denies injuries from another. Nutritional screening: No deficits noted. Tuberculosis screening: No symptoms or risk factors identified. Assessment: 16:17 General: Appears in no apparent distress. comfortable, well groomed, well developed, kc6 Behavior is calm, cooperative, appropriate for age. Pain: Denies pain. Neuro: Level of Consciousness is awake, alert, obeys commands, Oriented to person, place, time, situation, Appropriate for age. Cardiovascular: Capillary refill < 3 seconds. Respiratory: Airway is patent Trachea midline Respiratory effort is even, unlabored, Respiratory pattern is regular, symmetrical. GI: No signs and/or symptoms were reported involving the gastrointestinal system. : Reports discharge, bloody. EENT: No signs and/or symptoms were reported regarding the EENT system. Derm: No signs and/or symptoms reported regarding the dermatologic system. Skin is intact, is healthy with good turgor, Skin is pink, warm \T\ dry. Musculoskeletal: No signs and/or symptoms reported regarding the musculoskeletal system. Circulation, motion, and sensation intact. Capillary refill < 3 seconds, Range of motion: intact in all extremities. 17:50 Reassessment: Patient appears in no apparent distress at this time. No changes from kc6 previously documented assessment. Patient and/or family updated on plan of care and expected duration. Pain level reassessed. Patient is alert, oriented x 3, equal unlabored respirations, skin warm/dry/pink. d/c pending pre and post void residual and waldron insertion. 18:50 Reassessment: Patient appears in no apparent distress at this time. No changes from kc6 previously documented assessment. Patient and/or family updated on plan of care and expected duration. Pain level reassessed. Patient is alert, oriented x 3, equal unlabored respirations, skin warm/dry/pink. Vital Signs: 15:23 BP 167 / 91; Pulse 57; Resp 15; Temp 98.3; Pulse Ox 95% on R/A; Weight 84.82 kg; Height cm10 5 ft. 4 in. ; Pain 0/10; 16:16 BP 149 / 75; Pulse 60; Resp 16 S; Pulse Ox 98% on R/A; kc6 17:50 BP 147 / 82; Pulse 55; Resp 16 S; Pulse Ox 95% on R/A; kc6 15:23 Body Mass Index 32.10 (84.82 kg, 162.56 cm) cm10 15:23 Pain Scale: Adult cm10 ED Course: 14:53 Patient arrived in ED. ra3 15:21 Mio Pisano MD is Attending Physician. balbir 15:24 Triage completed. cm10 15:24 Arm band placed on left wrist. Patient placed in waiting room. cm10 15:54 Janeth Boyd, RN is Primary Nurse. kc6 16:16 Patient has correct armband on for positive identification. Bed in low position. Call kc6 light in reach. Side rails up X 1. Adult w/ patient. Pulse ox on. NIBP on. Door closed. Noise minimized. Lights dimmed. Pillow given. 16:16 Inserted saline lock: 20 gauge in right antecubital area, using aseptic technique. kc6 Blood collected. Flushed with 10 mL NS. Patient maintains SpO2 saturation greater than 95% on room air. 16:28 CT Stone Protocol In Process Unspecified. EDMS 16:59 PT-INR Sent. kc6 18:02 Bladder scan completed. 766 mL. kc6 18:17 Coud inserted, using sterile technique, 14 Fr. Returned clear yellow urine. To gravity kc6 drainage. Clamped. Patient tolerated well. 19:06 No provider procedures requiring assistance completed. IV discontinued, intact, kc6 bleeding controlled, No redness/swelling at site. Pressure dressing applied. Administered Medications: 16:36 Drug: Ondansetron IVP 4 mg IVP once; over 2 minutes Route: IVP; Site: right antecubital;kc6 16:59 Follow up: Response: No adverse reaction kc6 16:36 Drug: NS 0.9% IV 500 ml 500 ml IV at 1 bolus once; to be given as a bolus over 30 kc6 minutes Volume: 500 ml; Route: IV; Rate: 1 bolus; Site: right antecubital; 19:05 Follow up: Response: No adverse reaction; IV Status: Completed infusion; IV Intake: kc6 500ml 16:37 Drug: Rocephin IV 1 grams IV at per protocol once; Given slow IV push per pharmacy kc6 instructions Route: IV; Rate: per protocol; Site: right antecubital; 19:05 Follow up: Response: No adverse reaction; IV Status: Completed infusion; IV Intake: [id number] Medication: 19:06 VIS not applicable for this client. kc6 Intake: 19:05 IV: 500ml; Total: 500ml. kc6 19:05 IV: 10ml; Total: 510ml. kc6 Outcome: 17:46 Discharge ordered by MD. mcgregor 19:06 Discharged to home ambulatory, with family, with significant other, kc6 19:06 Condition: good 19:06 Discharge instructions given to patient, family, significant other, Instructed on discharge instructions, follow up and referral plans. medication usage, Demonstrated understanding of instructions, follow-up care, medications, Prescriptions given X 2, 19:06 Patient left the ED. kc6 Signatures: Dispatcher [employer] EDWV Mio Pisano MD MD cha Campbell, Kaitlyn RN RN kc6 Ginger Gomez RN RN cmRozina Levine 3
[2024-05-02 19:11] VITALS: TEMP 98.3
[2024-05-02 19:14] VITALS: BP 147/82; O2SAT 95
== END 2024-05-02 19:06 | disposition home or self-care (01) ==
LOC: ER 14:51
DX: R31.9 Hematuria, unspecified (principal); R33.8 Other retention of urine; Z79.01 Long term (current) use of anticoagulants; Z95.818 Presence of other cardiac implants and grafts
CPT/HCPCS: 96365; 87088; 85025; 81001; 87086; 36415; 85610; 83690; 80053; 76377; 74176; 96375; 99285; 96366; J2405; J7030; J0696

== ENCOUNTER 2024-05-05 11:59 | Emergency (ER) | payer OTHER ==
--- OUTSIDE RECORDS SUMMARY | 2024-05-05 12:03 | XMS REPORT | Clinical Summary ---
Author Name Unknown Organization [facility] Address [address] [place] [address] Care Team Providers Care Pressing Machine Tender Name Role Phone Sarita Mackay MD Primary Care Provider [phone] Smita Kruse MD Unavailable [phone] Isabel Finn Unavailable [phone] Елена Cantu MD Unavailable Torin Patel MD Unavailable [phone] Luis Mcghee MD Unavailable [phone] Yash Moran MD Unavailable [phone] Allergies Active Allergy Reactions Criticality Noted Date [...] 2023 Discontinued(S top Taking at Discharge) coenzyme [id number] 100-5 mg-unit cap Take 1 capsule [...] 06/23/2023 Assessment & Plan (06/23/2023 11:07 AM DIAGRAM CLERK): Patient with known mild bilateral carotid artery [...] stockings. Assessment & Plan (06/23/2023 11:11 AM DIAGRAM CLERK): Minimal pitting edema per-ankle area. Chronic skin changes highly suggestive of chronic venous insufficiency related edema. I advised patient and his to use compression stockings. Permanent atrial fibrillation 12/11/2022 Assessment & Plan (06/23/2023 11:08 AM DIAGRAM CLERK): Asymptomatic. Adequate ventricular rate control during episodes [...] Eliquis 5 mg p.o. twice daily for [id number] score of 4 (age x 2, CAD/PAD, [...] visit. Assessment & Plan (06/23/2023 11:10 AM DIAGRAM CLERK): Well-controlled. Continue amlodipine 5 mg daily, olmesartan [...] organization. Date Type Department Care Team Description 05/03/2024 Telephone Cardiop[facility] [address], 6th [place] [address] Andrea Campos RN 05/03/2024 Telephone Cardiopulmonary Center [address], 6th [place] [address] Andrea Campos RN 05/03/2024 Telephone [facility] [address], 6th [place] [address] Andrea Campos RN 04/30/2024 Telephone [facility] [address], 6th [place] [address] Madyson Mensah, CHERIE 04/30/2024 Telephone Cardiopulmonary Center [address], 6th [place] [address] Andrea Campos RN 04/29/2024 10:30 AM DIAGRAM CLERK Office Visit Internal Medicine Center - Geriatric Medicine [address] [facility], 6th [place] [address] Yash Moran MD Permanent atrial fibrillation (Primary Dx); Dementia in other diseases classified elsewhere, mild; Bradycardia; Carotid atherosclerosis; Peripheral vascular disease; Dyslipidemia; Benign prostatic hyperplasia 04/29/2024 Travel 04/29/2024 Telephone Cardiopulmonary Center [address] [place] [address], [facility] [place] [address] Andrea Campos RN 04/15/2024 9:40 AM DIAGRAM CLERK Consult Cardiopulmonary Center [address] [place] [address], [facility] Floor Elevator [place] [phone] Luis Mcghee MD Bradycardia 04/15/2024 Travel 04/09/2024 5:28 PM DIAGRAM CLERK - 04/12/2024 5:50 PM DIAGRAM CLERK Hospital Encounter MAIN [address] [place] [address] Bear Edwards MD [facility], MD Jamshid Guillory Magdelene, MD Tanwir, Hira, MD Bradycardia (Primary Dx); 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, not otherwise specified; Dementia in other diseases classified elsewhere, mild Discharge Disposition: Home 04/09/2024 Travel 04/09/2024 Telephone [facility] [address] [place] [address], [facility] [place] [address] Madyson Mensah, CHERIE 04/09/2024 Documentation [facility] [address] [place] [address], [facility] [place] [address] Madyson Mensah, RN 01/21/2024 2:00 PM CDT Telemedicine Cardiopulmonary Center [address] [place] [address], [facility] [place] [address] Damari Ojeda APRN Biju, Maria, APRN,MIKAYLA Paroxysmal atrial fibrillation (Primary Dx); Essential (primary) hypertension; Peripheral vascular disease; Dyslipidemia; Occlusion and stenosis of bilateral carotid arteries 12/22/2023 9:25 AM CDT - 12/22/2023 11:59 PM CDT Hospital Encounter Cardiop[facility] Center [address] [place] [address], 6th [place] [address] Damari Ojeda APRN Paroxysmal atrial fibrillation Discharge Disposition: Home 12/22/2023 8:00 AM CDT Follow-Up Cardiopulmonary Center [address] [place] [address], 6th [place] [address] Torin Patel MD Bailey, Katie, APRN Atrial fibrillation, not otherwise specified (Primary Dx); Essential (primary) hypertension; Edema of lower extremity 12/22/2023 Travel 08/12/2023 2:00 PM CDT Follow-Up [facility]oma [facility] [address] [place] [address], 6th [place] [address] Елена Cantu MD 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, not otherwise specified 08/12/2023 9:02 AM CDT - 08/12/2023 11:59 PM CDT Hospital Encounter Main CT IMAGING [address] [place] [address], 3rd [place] [address] Florin Mcintyre Aprn, APRN 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, not otherwise specified Discharge Disposition: Home 08/12/2023 7:33 AM CDT - 08/12/2023 9:01 AM CDT Hospital Encounter [facility] [address] [place] [address], [place] [address] Florin Mcintyre Aprn, APRN 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, not otherwise specified Discharge Disposition: Home 08/12/2023 7:33 AM CDT - 08/12/2023 9:01 AM CDT Hospital Encounter [facility] [address] [place] [address], [place] [address] Kemar Lopez PA Essential (primary) hypertension; Occlusion and stenosis of bilateral carotid arteries Discharge Disposition: Home 08/12/2023 Documentation [facility] [address] [facility] Main [facility], 6th [place] [address] Alison Zenaida 08/12/2023 Travel 07/29/2023 Refill Cardiopulmonary Center [address] [facility] Main [facility], 6th [place] [address] Torin Patel MD Atrial fibrillation, not otherwise specified 06/23/2023 11:40 AM DIAGRAM CLERK Follow-Up Cardiopulmonary Center [facility]5 [facility] Main [facility], 6th [place] [address] Torin Patel MD Paroxysmal atrial fibrillation (Primary Dx); Essential (primary) hypertension; Occlusion and stenosis of bilateral carotid arteries; Edema of lower extremity 06/23/2023 11:06 AM DIAGRAM CLERK - 06/23/2023 11:59 PM DIAGRAM CLERK Hospital Encounter Cardiopulmonary Center [facility]5 [facility] Main [facility], 6th [place] [address] Torin Patel MD Essential (primary) hypertension; Paroxysmal atrial fibrillation Discharge Disposition: Home 06/23/2023 Travel 06/06/2023 Documentation Cardiopulmonary Center [facility]5 [facility] Main [facility], 6th [place] [address] Staci Cronin RN 06/06/2023 Refill Cardiopulmonary Center [address] [place] [address], 6th [place] [address] Staci Cronin, RN Atrial fibrillation, not otherwise specified after 05/06/2023 Immunizations Name Administration Dates Next Due Pfizer [...] REDUCIBLE INGUINAL HERNIA 04/28/1997 - 04/27/1998 Right VT INSJ TUNNELED CTR VAD W/SUBQ PORT AGE 5 YR/> 10/30/2017 Neck/Right Procedure: PORT-A-CATH PLACEMENT; Surgeon: Micheal Zambrano MD; Location: [facility]; Service: THRCV [...] surgery are in the Medical Devices section. [facility] FLUORO CENTRAL VENOUS ACCESS DEV PLACEMENT 10/30/2017 [...] Comments Blood Pressure 153/80 04/29/2024 10:11 AM DIAGRAM CLERK Pulse 72 04/29/2024 10:11 AM DIAGRAM CLERK Temperature 36 C (96.8 F) 04/29/2024 10:11 AM DIAGRAM CLERK Respiratory Rate 16 04/29/2024 10:11 AM DIAGRAM CLERK Oxygen Saturation 96% 04/29/2024 10:11 AM DIAGRAM CLERK Inhaled Oxygen Concentration - - Weight 88 kg (194 lb 0.1 oz) 04/29/2024 10:11 AM DIAGRAM CLERK Height 163.4 cm (5' 4.33") 04/09/2024 11:[address] Body Mass Index 32.96 04/09/2024 11:36 PM DIAGRAM CLERK Plan of Treatment Upcoming Encounters Date Type Department Care Team (Late st Contact Info) Description 08/12/2024 8:15 AM CDT Appointment [facility] [address] [place] [address] Florin Mcintyre Aprn, EXECUTIVE TALENT ACQUISITION CONSULTANT [address] [place] [address] [email or web address] 08/12/2024 8:40 AM CDT Ancillary Procedure CT Imaging [facility]0 [facility], 7th [place] [address] Florin Mcintyre Medical Lab Assistant, EXECUTIVE TALENT ACQUISITION CONSULTANT [address] [place] [address] [email or web address] 08/12/2024 1:00 PM CDT Follow-Up [facility] [address] [place] [address] Main [facility], 6th [place] [address] Елена Cantu MD [facility] [place] [address] [email or web address] 08/27/2024 9:00 AM CDT Office Visit Internal Medicine Center - Geriatric Medicine [address] [facility], 6th [place] [address] John Cordova MD [address] [place] [address] [email or web address] Maintenance Due Date Last Done Comments Pneumococcal Vaccine: 65+ Ye ars (1 of 2 - PCV) 1946 COVID-19 Vaccine (4 - season) 2023 11/25/2020, 06/22/2020, 05/23/2020 Influenza Vaccine (#1) 2023 Medical Devices Implanted Type Area Sales And Service Officer Device Identifier Shelf Expiration Date Model / Serial / Lot Kade Baca Isp 6fr - [id number] Implanted:Qty: 1 on 10/30/2017 by Michael Zambrano MD at [facility] Implant Right: Neck BARD PERIPHERAL VASCULAR 02/25/2019 [id number] / / [id number] Procedures Procedure Name Priority Date/Time Associated Diagnosis Comments EKG, 12-LEAD (PORTABLE) STAT 04/15/2024 EKG, 12-LEAD (PORTABLE) STAT 04/13/2024 ECHOCARDIOGRAM 2D COMPLETE STAT 04/12/2024 8:17 AM DIAGRAM CLERK .CBC Routine 04/12/2024 5:28 AM DIAGRAM CLERK PHOSPHORUS LEVEL Routine 04/12/2024 5:28 AM DIAGRAM CLERK MAGNESIUM LEVEL Routine 04/12/2024 5:28 AM DIAGRAM CLERK COMPREHENSIVE METABOLIC PANEL Routine 04/12/2024 5:28 AM DIAGRAM CLERK COMPLETE BLOOD COUNT W/ DIFFERENTIAL Routine 04/12/2024 5:28 AM DIAGRAM CLERK PROTHROMBIN TIME Routine 04/12/2024 5:28 AM DIAGRAM CLERK HOLTER MONITOR - 48 HOUR Routine 04/12/2024 EKG, 12-LEAD (PORTABLE) Routine 04/12/2024 FREE THYROXINE Add-On 04/11/2024 6:09 AM DIAGRAM CLERK THYROID STIMULATING HORMONE Add-On 04/11/2024 6:09 AM DIAGRAM CLERK DIRECT AND INDIRECT BILIRUBIN Routine 04/11/2024 6:09 AM DIAGRAM CLERK .CBC Routine 04/11/2024 6:09 AM DIAGRAM CLERK PHOSPHORUS LEVEL Routine 04/11/2024 6:09 AM DIAGRAM CLERK MAGNESIUM LEVEL Routine 04/11/2024 6:09 AM DIAGRAM CLERK COMPREHENSIVE METABOLIC PANEL Routine 04/11/2024 6:09 AM DIAGRAM CLERK COMPLETE BLOOD COUNT W/ DIFFERENTIAL Routine 04/11/2024 6:09 AM DIAGRAM CLERK PROTHROMBIN TIME Routine 04/11/2024 6:09 AM DIAGRAM CLERK DIRECT AND INDIRECT BILIRUBIN Routine 04/10/2024 4:46 AM DIAGRAM CLERK .CBC Routine 04/10/2024 4:46 AM DIAGRAM CLERK PHOSPHORUS LEVEL Routine 04/10/2024 4:46 AM DIAGRAM CLERK MAGNESIUM LEVEL Routine 04/10/2024 4:46 AM DIAGRAM CLERK COMPREHENSIVE METABOLIC PANEL Routine 04/10/2024 4:46 AM DIAGRAM CLERK COMPLETE BLOOD COUNT W/ DIFFERENTIAL Routine 04/10/2024 4:46 AM DIAGRAM CLERK PROTHROMBIN TIME Routine 04/10/2024 4:46 AM DIAGRAM CLERK HISTORICAL ABORH Routine 04/09/2024 6:01 PM DIAGRAM CLERK XR CHEST 1 VW STAT 04/09/2024 5:56 PM DIAGRAM CLERK NT PRO BNP Add-On 04/09/2024 5:44 PM DIAGRAM CLERK DIRECT AND INDIRECT BILIRUBIN STAT 04/09/2024 5:44 PM DIAGRAM CLERK .CBC STAT 04/09/2024 5:44 PM DIAGRAM CLERK TYPE AND SCREEN Routine 04/09/2024 5:44 PM DIAGRAM CLERK APTT Routine 04/09/2024 5:44 PM DIAGRAM CLERK PROTHROMBIN TIME Routine 04/09/2024 5:44 PM DIAGRAM CLERK CARDIAC PANEL Routine 04/09/2024 5:44 PM DIAGRAM CLERK PHOSPHORUS LEVEL STAT 04/09/2024 5:44 PM DIAGRAM CLERK MAGNESIUM LEVEL STAT 04/09/2024 5:44 PM DIAGRAM CLERK COMPREHENSIVE METABOLIC PANEL STAT 04/09/2024 5:44 PM DIAGRAM CLERK COMPLETE BLOOD COUNT W/ DIFFERENTIAL STAT 04/09/2024 5:44 PM DIAGRAM CLERK EKG, 12-LEAD (SCHEDULED) Routine 12/22/2023 Paroxysmal atrial [...] Essential (primary) hypertension Paroxysmal atrial fibrillation after 05/06/2023 Results * EKG, 12-Lead (Portable) (04/15/2024) Only the most recent of3 resultswithin the time period is included. Jahaira Huizar APRN ECG ORDERABLES Final Resu lt [facility] I[facility] * Echocardiogram 2D Complete (04/12/2024 8:17 AM DIAGRAM CLERK) EF 56 ISCV 04/12/2024 7:53 AM DIAGRAM CLERK Narrative ISCV - 04/12/2024 1:20 PM DIAGRAM CLERK Echocardiographic Report Interpretation Summary A complete two-dimensional [...] ISCV * (ABNORMAL) .CBC (04/12/2024 5:28 AM DIAGRAM CLERK) Only the most recent of5 resultswithin the time period is included. White Blood Cell 5.3 4.1 - 10.5 K/uL 04/12/2024 6:12 AM [facility] Red Blood Cell 4.78 4.30 - 6.04 M/uL 04/12/2024 6:12 AM [facility] Hemoglobin 14.5 13.3 - 17.4 g/dL 04/12/2024 6:12 AM [facility] Hematocrit 43.3 39.5 - 51.8 % 04/12/2024 6:12 AM [facility] Mean Cell Volume 91 82 - 99 fL 04/12/20 6:12 AM [facility] Mean Cell Hemoglobin 30.3 26.6 - 33.2 pg 04/12/2024 6:12 AM [facility] Mean Cell Hemoglobin Concentration 33.5 31.1 - 35.2 g/dL 04/12/2024 6:12 AM [facility] RDW-SD 49.2 37.5 - 49.7 fL 04/12/2024 6:12 AM [facility] Red Cell Diameter Width 14.9 11.6 - 15.5 % 04/12/2024 6:12 AM [facility] Platelet 124(L) 160 - 397 K/uL 04/12/2024 6:12 AM [facility] Mean Platelet Volume 10.2 9.1 - 12.6 fL 04/12/2024 6:12 AM [facility] INRBC 0.0 0.0 - 0.1 /100 WBC 04/12/2024 6:12 AM [facility] Comment: The INRBC (instrument NRBC) value reflects the enumeration of nucleated red blood cells contained in a 200uL sample of whole blood analyzed by the instrument. This value may differ from the NRBC value reported in a manual differential, which is based on a 100 cell differential. Neutrophil % 55.9 43.2 - 72.7 % 04/12/2024 6:12 AM [facility] Lymphocyte % 28.7 16.8 - 46.2 % 04/12/2024 6:12 AM [facility] Monocyte % 9.9 5.1 - 12.5 % 04/12/2024 6:12 AM [facility] Eosinophil % 3.8 0.4 - 6.3 % 04/12/2024 6:12 AM [facility] Basophil % 1.1 0.2 - 1.4 % 04/12/2024 6:12 AM [facility] IGRE % 0.6 0.1 - 1.5 % 04/12/2024 6:12 AM [facility] Comment:The IGRE% includes M etamyelocytes, Myelocytes and Promyelocytes. Neutrophil Abs 2.94 1.95 - 7.25 K/uL 04/12/2024 6:12 AM [facility] Lymphocyte Abs 1.51 1.01 - 3.24 K/uL 04/12/2024 6:12 AM [facility] Monocyte Abs 0.52 0.24 - 0.85 K/uL 04/12/2024 6:12 AM [facility] Eosinophil Abs 0.20 0.02 - 0.50 K/uL 04/12/2024 6:12 AM [facility] Basophil Abs 0.06 0.02 - 0.09 K/uL 04/12/2024 6:12 AM [facility] IG Abs 0.03 0.01 - 0.12 K/uL 04/12/2024 6:12 AM [facility] Blood Peripheral blood specimen / Unknown Venipuncture / Unknown 04/12/2024 5:28 AM DIAGRAM CLERK 04/12/2024 5:49 AM [facility] us Boogie Breen MD LAB BLOOD ORDERABLES Final Result [facility] Unless otherwise noted, all lab tests performed by: Division of Pathology and Laboratory Medicine [address] [place] [phone] * (ABNORMAL) Comprehensive Metabolic Panel (04/12/2024 5:28 AM [facility]) Only the most recent of5 resultswithin the time period is included. Bilirubin Total 0.7 0.0 - 1.2 mg/dL 04/12/2024 6:21 AM [facility] Comment:Indocyanine Green (I CG) may cause falsely elevated bilirubin results. Total and direct bilirubin must not be measured from samples containing indocyanine green. False elevation of total bilirubin can be seen in patients with IgG concentrations above 28 g/L. eGFR 68 >=60 mL/min/1. 73 sq. m 04/12/2024 6:21 AM [facility] Comment: The eGFRcr is calculated with the [...] 6.4 - 8.3 gm/dL 04/12/2024 6:21 AM [facility] Calcium Level Total 9.0 8.2 - 10.2 mg/dL 04/12/2024 6:21 AM [facility] Alkaline Phosphatase 86 40 - 129 U/L 04/12/2024 6:21 AM [facility] Albumin Level 3.7 3.5 - 5.2 gm/dL 04/12/2024 6:21 AM [facility] AST 29 <=40 U/L 04/12/2024 6:21 AM [facility] ALT 17 <=41 U/L 04/12/2024 6:21 AM [facility] Sodium Level 139 136 - 145 mmol/L 04/12/2024 6:21 AM [facility] Potassium Level 4.3 3.4 - 4.5 mmol/L 04/12/2024 6:21 AM [facility] Chloride 106 98 - 107 mmol/L 04/12/2024 6:21 AM [facility] CO2 26 22 - 29 mmol/L 04/12/2024 6:21 AM [facility] Anion Gap 7 4 - 14 mmol/L 04/12/2024 6:21 AM [facility] Creatinine 1.07 0.67 - 1.17 mg/dL 04/12/2024 6:21 AM [facility] BUN 24(H) 6 - 23 mg/dL 04/12/2024 6:21 AM [facility] Glucose Level 114(H) 70 - 99 mg/dL 04/12/2024 6:21 AM [facility] Comment: Effective 11/22/15, the glucose reference intervals have been updated based on [place] Diabetes [employer] guidelines (Standards of Medical Care [...] Unknown Venipuncture / Unknown 04/12/2024 5:28 AM DIAGRAM CLERK 04/12/2024 5:49 AM [facility] Boogie Breen MD LAB BLOOD ORDERABLES Final Result [facility] Unless otherwise noted, all lab tests performed by: Division of Pathology and Laboratory Medicine [address] [place] [phone] * (ABNORMAL) Prothrombin Time with INR (04/12/2024 5:28 AM [facility]) Only the most recent of4 resultswithin the time period is included. Prothrombin Time 18.0(H) 12.2 - 14.4 second(s) 04/12/2024 6:29 AM [facility] International Normalization Ratio 1.52(H) 0.91 - 1.10 04/12/2024 6:29 AM [facility] Blood Peripheral blood specimen / Unknown Venipuncture / Unknown 04/12/2024 5:28 AM DIAGRAM CLERK 04/12/2024 5:47 AM DIAGRAM CLERK Result Haile Breen MD LAB BLOOD ORDERABLES Final Result Performing Organization Address City/[facility] Co de Phone Number [facility] Unless otherwise noted, all lab tests performed by: Division of Pathology and Laboratory Medicine [address] [place] [phone] * Phosphorus Level (04/12/2024 5:28 AM DIAGRAM CLERK) Only the most recent of5 resultswithin the time period is included. Phosphorus Level 3.2 2.5 - 4.5 mg/dL 04/12/2024 6:21 AM DIAGRAM CLERK [facility] Blood Peripheral blood specimen / Unknown Venipuncture / Unknown 04/12/2024 5:28 AM DIAGRAM CLERK 04/12/2024 5:49 AM DIAGRAM CLERK Result Haile Breen MD LAB BLOOD ORDERABLES Final Result Performing Organization Address [facility] de Phone Number [facility] Unless otherwise noted, all lab tests performed by: Division of Pathology and Laboratory Medicine [address] [place] [phone] * Magnesium Level (04/12/2024 5:28 AM DIAGRAM CLERK) Only the most recent of5 resultswithin the time period is included. Magnesium Level 2.4 1.6 - 2.6 mg/dL 04/12/2024 6:21 AM DIAGRAM CLERK [facility] Blood Peripheral blood specimen / Unknown Venipuncture / Unknown 04/12/2024 5:28 AM DIAGRAM CLERK 04/12/2024 5:49 AM DIAGRAM CLERK Result Haile Breen MD LAB BLOOD ORDERABLES Final Result Performing Organization Address City/[facility] Co de Phone Number [facility] Unless otherwise noted, all lab tests performed by: Division of Pathology and Laboratory Medicine [address] [place] [phone] * Holter Monitor - 48 hour (04/12/2024) Isabel Perez APRN ECG ORDERABLES Final Re sult Performing Organization Address City/[facility]/ZIP Co de Phone Number [facility] * (ABNORMAL) Direct and Indirect Bilirubin (04/11/2024 6:09 AM DIAGRAM CLERK) Only the most recent of3 resultswithin the time period is included. Bilirubin Direct 0.5(H) 0.0 - 0.2 mg/dL 04/11/2024 8:12 AM DIAGRAM CLERK [facility] Bilirubin Indirect 0.8 0.0 - 1.0 mg/dL 04/11/2024 8:12 AM DIAGRAM CLERK [facility] Blood Peripheral blood specimen / Unknown Venipuncture / Unknown 04/11/2024 6:09 AM DIAGRAM CLERK 04/11/2024 6:26 AM DIAGRAM CLERK Boogie Breen MD LAB BLOOD ORDERABLES Final Result Performing Organization Address [facility]/ZIP Co de Phone Number [facility] Unless otherwise noted, all lab tests performed by: Division of Pathology and Laboratory Medicine [address] [place] [phone] * TSH (04/11/2024 6:09 AM DIAGRAM CLERK) Thyroid Stimulating Hormone 3.32 0.27 - 4.20 mcunit/mL 04/11/2024 8:43 AM DIAGRAM CLERK [facility] Blood Peripheral blood specimen / Unknown Venipuncture / Unknown 04/11/2024 6:09 AM DIAGRAM CLERK 04/11/2024 6:26 AM DIAGRAM CLERK Damari Ojeda APRN LAB BLOOD ORDERABLES Final Res ult Performing Organization Address City/[facility]/ZIP Co de Phone Number [facility] Unless otherwise noted, all lab tests performed by: Division of Pathology and Laboratory Medicine [address] [place] [phone] * Free T4 (04/11/2024 6:09 AM DIAGRAM CLERK) T4 (Thyroxine) Free 0.94 0.92 - 1.68 ng/dL 04/11/2024 8:43 AM DIAGRAM CLERK [facility] Blood Peripheral blood specimen / Unknown Venipuncture / Unknown 04/11/2024 6:09 AM DIAGRAM CLERK 04/11/2024 6:26 AM DIAGRAM CLERK us Damari Ojeda APRN LAB BLOOD ORDERABLES Final Res ult [facility] Unless otherwise noted, all lab tests performed by: Division of Pathology and Laboratory Medicine [address] [place] [phone] * Historical ABORh (04/09/2024 6:01 PM DIAGRAM CLERK) ABORh O POS 04/09/2024 6:02 PM DIAGRAM CLERK [facility] - [facility] Blood Peripheral blood specimen / Unknown 04/09/2024 6:01 PM DIAGRAM CLERK 04/09/2024 6:01 PM DIAGRAM CLERK us Zeeshan Aldana MD BLOOD BANK TEST ORDERAB LES Final Result [facility] - [facility] [address] [place] [address] [phone] [place] [address] * X-ray Chest 1 View (04/09/2024 5:56 PM DIAGRAM CLERK) Anatomical Region Laterality Modality Chest Digital Radiogra phy 04/09/2024 6:09 PM DIAGRAM CLERK Impressions 04/09/2024 6:15 PM DIAGRAM CLERK Left lower lobe parenchymal opacities concerned about [...] and potentially actionable. Narrative 04/09/2024 6:15 PM DIAGRAM CLERK FULL RESULT: Examination: XR CHEST 1 VW [...] radiologicfindings that are unexpected and potentially actionable. us Zeeshan Aldana MD IM DIAGNOSTIC IMAGING ORDERABLES Final Result * Cardiac Panel (04/09/2024 5:44 PM DIAGRAM CLERK) Creatine Kinase 91 39 - 308 U/L 04/09/2024 6:13 PM DIAGRAM CLERK [facility] CKMB 3.3 <=10.4 ng/mL 04/09/2024 6:13 PM DIAGRAM CLERK [facility] Troponin T 17 <=19 ng/L 04/09/2024 6:13 PM DIAGRAM CLERK [facility] Comment: < 19 ng/L Suggest retest at [...] Unknown Venipuncture / Unknown 04/09/2024 5:44 PM DIAGRAM CLERK 04/09/2024 5:48 PM DIAGRAM CLERK Zeeshan Aldana MD LAB BLOOD ORDERABLES Fi nal Result Performing Organization Address City/[facility] Co de Phone Number [facility] Unless otherwise noted, all lab tests performed by: Division of Pathology and Laboratory Medicine [address] [place] [phone] * (ABNORMAL) aPTT (04/09/2024 5:44 PM DIAGRAM CLERK) [facility] Activated PTT 37.2(H) 24.8 - 35.6 second(s) 04/09/2024 6:13 PM DIAGRAM CLERK [facility] Blood Peripheral blood specimen / Unknown Venipuncture / Unknown 04/09/2024 5:44 PM DIAGRAM CLERK 04/09/2024 5:48 PM DIAGRAM CLERK Zeeshan Aldana MD LAB BLOOD ORDERABLES Fi nal Result Performing Organization Address City/[facility]/ZIP Co de Phone Number [facility] Unless otherwise noted, all lab tests performed by: Division of Pathology and Laboratory Medicine [address] [place] [phone] * (ABNORMAL) NT-Pro BNP (In-House) (04/09/2024 5:44 PM DIAGRAM CLERK) [facility] NT-ProBNP 1,502(H) <=450 pg/mL 04/09/2024 6:54 PM DIAGRAM CLERK [facility] Blood Peripheral blood specimen / Unknown Venipuncture / Unknown 04/09/2024 5:44 PM DIAGRAM CLERK 04/09/2024 5:48 PM DIAGRAM CLERK us Bear Edwards MD LAB BLOOD ORDERABLES Final R esult Performing Organization Address City/[facility]/ZIP Co de Phone Number [facility] Unless otherwise noted, all lab tests performed by: Division of Pathology and Laboratory Medicine [address] [place] [phone] * Type and screen (04/09/2024 5:44 PM DIAGRAM CLERK) ABORh O POS 04/09/2024 5:39 PM DIAGRAM CLERK [facility] ABSC Negative 04/09/2024 5:39 PM DIAGRAM CLERK [facility] Clot Expiration 04/12/2024 23:59 04/09/2024 5:39 PM DIAGRAM CLERK [facility] Historical Record Check Complete 04/09/2024 5:39 PM DIAGRAM CLERK [facility] Blood Peripheral blood specimen / Unknown Venipuncture / Unknown 04/09/2024 5:44 PM DIAGRAM CLERK 04/09/2024 5:49 PM DIAGRAM CLERK us Zeeshan Aldana MD BLOOD BANK TEST ORDERAB LES Final Result Performing Organization Address [facility]/ZIP Co de Phone Number [facility] [place] [address] * EKG, 12-Lead (Scheduled) (12/22/2023) Only the most recent of2 resultswithin the time period is included. us Damari Ojeda APRN ECG ORDERABLES Final Result [facility] * CT Chest Abdomen Pelvis [...] that are unexpected and potentially actionable. Florin Mcintyre APRN [facility] [place] [place] CT ORDERABLE S Final Result * CT [...] IMG CT ORDERABLE S Final Result * MDA CP BLSTFL (08/12/2023 7:51 AM CDT) Blood Venipuncture / Unknown 08/12/2023 7:51 AM CDT 08/12/2023 7:55 AM CDT Florin Mcintyre APRN LAB BLOOD ORDERA BLES Final Result [facility] Unless otherwise noted, all lab tests performed by: Division of Pathology and Laboratory Medicine [address] [place] [phone] * Fractionated Bilirubin (08/12/2023 7:51 AM CDT) [facility] Bilirubin Direct 0.3 0.0 - 0.3 mg/dL 08/12/2023 8:35 AM CDT [facility] Comment:Indocyanine Green (I CG) may cause falsely elevated bilirubin results. Total and direct bilirubin must not be measured from samples containing indocyanine green. Bilirubin Indirect 0.7 0.0 - 0.9 mg/dL 08/12/2023 8:35 AM CDT [facility] Bilirubin Total 1.0 0.0 - 1.2 mg/dL 08/12/2023 8:35 AM CDT [facility] Comment: Indocyanine Green (ICG) may cause falsely [...] APRN LAB BLOOD ORDERA BLES Final Result [facility] Unless otherwise noted, all lab tests performed by: Division of Pathology and Laboratory Medicine [facility] [place] [address] * (ABNORMAL) Differential (08/12/2023 7:51 AM CDT) [facility] Total Cells 115 08/12/2023 9:07 AM CDT [facility] Manual Neutrophil % 53.0 43.2 - 72.7 % 08/12/2023 9:07 AM CDT [facility] Comment:The Neutrophil count includes Bands. Manual Lymphocyte % 32.0 16.8 - 46.2 % 08/12/2023 9:07 AM CDT [facility] Manual Monocyte % 9.0 5.1 - 12.5 % 08/12/2023 9:07 AM CDT [facility] Manual Eosinophil % 3.0 0.4 - 6.3 % 08/12/2023 9:07 AM CDT [facility] Manual Basophil % 2.0(H) 0.2 - 1.4 % 08/12/2023 9:07 AM CDT [facility] Metamyelocyte % 1.0(H) <=0.0 % 9:07 AM CDT [facility] Comment:The Metamyelocyte co unt includes Myelocytes. Manual Neutrophil Abs 2.76 1.95 - 7.25 K/uL 08/12/2023 9:07 AM CDT [facility] Manual Lymphocyte Abs 1.66 1.01 - 3.24 K/uL 08/12/2023 9:07 AM CDT [facility] Manual Monocyte Abs 0.47 0.24 - 0.85 K/uL 08/12/2023 9:07 AM CDT [facility] Manual Eosinophil Abs 0.16 0.02 - 0.50 K/uL 08/12/2023 9:07 AM CDT [facility] Manual Basophil Abs 0.10(H) 0.02 - 0.09 K/uL 08/12/2023 9:07 AM CDT [facility] RBC Morphology PRESENT 08/12/2023 9:07 AM CDT [facility] Poikilocytosis Present(A) (none) 08/12/2023 9:07 AM T [facility] Ovalocyte Present(A) (none) 08/12/2023 9:07 AM CDT [facility] Slide Comment SEE NOTE 08/12/2023 9:07 AM T [facility] Comment:PLT: Platelet morpho logy normal with occasional giant platelets seen Blood Venipuncture / Unknown 08/12/2023 7:51 AM CDT 08/12/2023 7:55 AM CDT us Florin Medical Lab Assistant Torychuck GONZALEZN LAB BLOOD ORDERA BLES Final Result [facility] Unless otherwise noted, all lab tests performed by: Division of Pathology and Laboratory Medicine [address] [place] [phone] * (ABNORMAL) Uric Acid (08/12/2023 7:51 AM CDT) Pathologist [facility] Uric Acid 7.5(H) 3.4 - 7.0 mg/dL 08/12/2023 8:35 AM CDT [facility] Blood Venipuncture / Unknown 08/12/2023 7:51 AM CDT 08/12/2023 7:55 AM CDT us Nelajanett Gonzalezn Torychuck GONZALEZN LAB BLOOD ORDERA BLES Final Result Performing Organization Address [facility] de Phone Number [facility] Unless otherwise noted, all lab tests performed by: Division of Pathology and Laboratory Medicine [address] [place] [phone] * LDH (08/12/2023 7:51 AM CDT) [facility] LDH 150 135 - 225 U/L 08/12/2023 8:35 AM CDT [facility] Blood Venipuncture / Unknown 08/12/2023 7:51 AM CDT 08/12/2023 7:55 AM CDT Narrative [facility] - 08/12/2023 8:35 AM CDT Results greater than 1651 U/L may not be reliable due to matrix effect with extended dilution as it exceeds the attendant lodging facilities's recommended limit. Caution should be exercised when interpreting such values and done in conjunction with clinical context. us Florin Medical Lab Assistant Essanthoshisaurogeovanny EXECUTIVE TALENT ACQUISITION CONSULTANT LAB BLOOD ORDERA BLES Final Result Performing Organization Address City/[facility] Co de Phone Number [facility] Unless otherwise noted, all lab tests performed by: Division of Pathology and Laboratory Medicine [address] [place] [phone] * (ABNORMAL) Lipid panel (08/12/2023 7:51 AM CDT) Cholesterol Total 141 <=199 mg/dL 08/12/2023 8:35 AM CDT [facility] Comment: ATP III Classification of Total Cholesterol - Primary Target of Therapy (in mg/dL): <200 Desirable 200-239 Borderline high >=240 High Triglyceride 128 <=149 mg/dL 08/12/2023 8:35 AM CDT [facility] Comment: ATP III Classification of Serum Triglycerides Primary Target of Therapy (in mg/dL): <150 Normal 150-199 Borderline high 200-499 High >=500 Very high Non-fasting triglycerides >200 mg/dL may be followed up with a fasting Lipid Panel. Calculated LDL-C may be falsely decreased when non-fasting triglycerides >200 mg/dL. HDL Cholesterol 35(L) >=40 mg/dL 08/12/2023 8:35 AM CDT [facility] LDL Cholesterol 80 <=100 mg/dL 08/12/2023 8:35 AM CDT [facility] Comment: ATP III Classification of LDL Cholesterol Primary Target of Therapy (in mg/dL): <100 Optimal 100-129 Near optimal/above optimal 130-159 Borderline high 160-189 High >=190 Very high Very Low Density Lipoprotein 26 mg/dL 08/12/2023 8:35 AM CDT [facility] Is patient fasting? Yes 08/11 8:35 AM CDT [facility] Blood Venipuncture / Unknown 08/12/2023 7:51 AM CDT 08/12/2023 7:55 AM CDT us Kemar LIN LAB BLOOD ORDERABLES Final Res ult [facility] Unless otherwise noted, all lab tests performed by: Division of Pathology and Laboratory Medicine [facility] [place] [address] after 05/06/2023 Insurance [facility] MEDICARE ADVANTAGE [facility] MEDICARE ADVANTAGE [facility] MEDICARE ADVANTAGE Advance Directives * Full Code (Latest Code Status on File) Date Activated Date Inactivated Comments 04/09/2024 9:32 PM 04/12/2024 7:50 PM Care Teams Pressing Machine Tender Relationship Specialty Start Date End Date Sarita Mackay MD [address] [place] [address] [email or web address] PCP - General Dermatology 08/27/17 Smita Kruse MD [address] [facility] [address] [place] [address] [email or web address] PCP - External Referring Internal Medicine 08/27/17 Isabel Finn PA [address] [place] [phone] [email or web address] Physician Vein Access Technician Surgical Oncology 10/27/17 Елена Cantu MD [address] [place] [phone] [email or web address] Consulting Physician Lymphoma and Myeloma 09/05/17 Torin Patel MD [address] [place] [phone] [email or web address] Consulting Physician Cardiology 10/26/18 Luis Mcghee MD [address] [place] [phone] [email or web address] Consulting Physician Cardiology 04/15/24 Yash Moran MD [address] [place] [phone] [email or web address] Consulting Physician Internal Medicine 04/29/24
[2024-05-05 13:20] LABS: Absolute Basophils 0.1 K/uL (0-0.5); Absolute Eosinophils 0.2 K/uL (0-0.5); Absolute Lymphocytes (CBC) 1.1 K/uL (0.7-4.9); Absolute Monocytes 0.7 K/uL (0.1-1.3); Absolute Neutrophil 5.8 K/uL (1.8-8.0); Eosinophils % 2.3 % (0-4.4); Hematocrit 44.9 % (39.6-49.0); Hemoglobin 15.1 g/dL (13.6-17.9); Lymphocytes % 13.9 % (15.3-44.8); MCH 30.7 pg (27.0-35.0); MCHC 33.6 g/dL (32.0-36.0); MCV 91.4 fL (80-100); Monocytes % 8.3 % (3.3-12.3); Neutrophils % 74.5 % (41.7-73.7); Nucleated Red Blood Cells % 0.1 % (0-0); Platelets 168 thou/uL (152-406); RBC Red Blood Cell Count 4.92 M/uL (4.33-5.43); Red Cell Distribution Width 14.9 % (12.1-15.2)
[2024-05-05 13:30] LABS: PT Prothrombin Time 17.5 SECONDS (9.4-12.5); PTT, Activated Partial Thromb 39.6 SECONDS (24.3-36.9); Protime INR 1.58
[2024-05-05 13:36] LABS: Anion Gap 7.5 mEq/L (5.0-15.0); Potassium 3.5 mEq/L (3.5-5.1)
--- NOTE | 2024-05-05 13:59 | ER ---
Nurse's Notes [facility] Name: Lon Romero Age: 83 yrs Sex: Male : 1940 Arrival Date: 05/05/2024 Time: 11:59 Bed 20 Private MD: Diagnosis: Hematuria, unspecified Presentation: 05/05 12:21 Chief complaint: Patient states: urinary catheter put in on Friday, blood in urine has tm6 continued. Some clots in bag when he stopped the eliquis, so eliquis restarted. Coronavirus screen: Client denies travel out of the [place] in the last 14 days. Ebola Screen: Patient negative for fever greater than or equal to 101.5 degrees Fahrenheit, and additional compatible Ebola Virus Disease symptoms Patient denies exposure to infectious person. Patient denies travel to an Ebola-affected area in the 21 days before illness onset. No symptoms or risks identified at this time. Initial Sepsis Screen: Does the patient meet any 2 criteria? No. Patient's initial sepsis screen is negative. Does the patient have a suspected source of infection? No. Patient's initial sepsis screen is negative. Risk Assessment: Do you want to hurt yourself or someone else? Patient reports no desire to harm self or others. Onset of symptoms was May 02, 2024. 12:21 Method Of Arrival: Ambulatory tm6 12:21 Acuity: ESAU 4 tm6 12:40 Acuity: ESAU 3 iw Triage Assessment: 12:21 General: Appears in no apparent distress. Behavior is calm, cooperative. Pain: Denies tm6 pain. EENT: No signs and/or symptoms were reported regarding the EENT system. Neuro: Level of Consciousness is awake, alert, obeys commands, Oriented to person, place, time, situation. Cardiovascular: Patient's skin is warm and dry. Respiratory: Airway is patent Respiratory effort is even, unlabored, Respiratory pattern is regular, symmetrical. GI: No signs and/or symptoms were reported involving the gastrointestinal system. Abdomen is round non-distended. : Reports blood in urine with waldron. Derm: No signs and/or symptoms reported regarding the dermatologic system. Musculoskeletal: No signs and/or symptoms reported regarding the musculoskeletal system. Historical: - Allergies: 12:18 unknown blood thinner; tm6 - Home Meds: 12:18 Eliquis 5 mg Oral tablet 1 tab every 12 hours [Active]; aspirin 81 mg Oral tablet tm6 [Active]; tamsulosin 0.4 mg Oral capsule [Active]; pitavastatin calcium 4 mg Oral tablet 1 tab daily [Active]; losartan 50 mg Oral tablet 1 tab daily [Active]; levothyroxine 125 mcg tablet 0.5 tabs daily [Active]; finasteride 5 mg Oral tablet 1 tab daily [Active]; icosapent ethyl 1 gram Oral capsule 2 caps 2 times per day [Active]; Decara 625 mcg (25 Oral capsule 1 cap every 2 weeks [Active]; - PMHx: 12:18 Elevated Triglycerides; enlarged prostate; Hypercholesterolemia; Hypertensive disorder; tm6 Hypothyroidism; 12:20 lymphoma; tm6 - PSHx: 12:18 cardiac stents; tm6 - Immunization history:: Flu vaccine is not up to date. - Infectious Disease History:: Denies. - Social history:: Smoking status: Patient denies any tobacco usage or history of. - Family history:: not pertinent. - Hospitalizations: : No recent hospitalization is reported. Screenin:02 [facility] ED Fall Risk Assessment (Adult) History of falling in the last 3 months, bp including since admission No falls in past 3 months (0 pts) Confusion or Disorientation No (0 pts) Intoxicated or Sedated No (0 pts) Impaired Gait No (0 pts) Mobility Assist Device Used No (0 pt) Altered Elimination No (0 pt) Score/Fall Risk Level 0 - 2 = Low Risk Oriented to surroundings. Abuse screen: Denies threats or abuse. Denies injuries from another. Nutritional screening: No deficits noted. Tuberculosis screening: No symptoms or risk factors identified. Assessment: 12:21 General: Appears in no apparent distress. comfortable, Behavior is calm, cooperative, bp appropriate for age. Vital Signs: 12:18 Pulse 63; Resp 16; Pulse Ox 99% on R/A; tm6 12:20 BP 171 / 84; MAP 110 mmHg; Weight 84.82 kg; Height 5 ft. 4 in. ; tm6 14:36 BP 157 / 75; Pulse 71; Resp 16; Pulse Ox 99% ; bp 12:20 Body Mass Index 32.10 (84.82 kg, 162.56 cm) tm6 ED Course: 12:02 Patient arrived in ED. ra3 12:06 Conor Espinosa MD is Attending Physician. rn 12:21 Arm band placed on right wrist. tm6 12:23 Triage completed. tm6 12:47 Zane Eason, RN is Primary Nurse. bp 13:02 Patient has correct armband on for positive identification. bp 13:02 Inserted saline lock: 20 gauge in right forearm, using aseptic technique. Blood bp collected. Flushed with 10 mL NS. 13:15 BLADDER IRRIGATION. bp 14:35 No provider procedures requiring assistance completed. IV discontinued, intact, bp bleeding controlled, No redness/swelling at site. Pressure dressing applied. Administered Medications: No medications were administered Medication: 14:36 VIS not applicable for this client. bp Outcome: 13:58 Discharge ordered by . rn 14:36 Discharged to home ambulatory, with family, bp 14:36 Condition: stable 14:36 Discharge instructions given to patient, family, Instructed on discharge instructions, follow up and referral plans. Demonstrated understanding of instructions, follow-up care, 14:37 Patient left the ED. bp Signatures: Mary Carmen Rhodes RN CHERIE Conor Espinosa MD MD rn Peltier, Brian, RN RN Emerita Huertas RN RN Rozina Maynard 3
--- NOTE | 2024-05-05 13:59 | EDPHYS ---
Physician Documentation [facility] Name: Lon Romero Age: 83 yrs Sex: Male : 1940 Arrival Date: 05/05/2024 Time: 11:59 Bed 20 Private MD: ED Physician Conor Espinosa HPI: 05/05 12:47 This 83 yrs old Male presents to ER via Ambulatory with complaints of Problem rn With Urinary Catheter. 12:47 The patient presents with urinary symptoms, Hematuria. rn 12:47 Onset: The symptoms/episode began/occurred 2 day(s) ago. Modifying factors: The rn symptoms are alleviated by nothing, the symptoms are aggravated by nothing. Severity of symptoms: At their worst the symptoms were mild, in the emergency department the symptoms are unchanged. The patient has not experienced similar symptoms in the past. The patient has been recently seen by a physician:. Spouse reports patient has had a Savage catheter placed 3 days ago, continued his Eliquis and aspirin and has been urinating blood since placement of catheter. Patient is taking prophylactic antibiotics. Patient denies any pain. No fever or chills. Catheter placed for urinary retention. Historical: - Allergies: 12:18 unknown blood thinner; tm6 - Home Meds: 12:18 Eliquis 5 mg Oral tablet 1 tab every 12 hours [Active]; aspirin 81 mg Oral tablet tm6 [Active]; tamsulosin 0.4 mg Oral capsule [Active]; pitavastatin calcium 4 mg Oral tablet 1 tab daily [Active]; losartan 50 mg Oral tablet 1 tab daily [Active]; levothyroxine 125 mcg tablet 0.5 tabs daily [Active]; finasteride 5 mg Oral tablet 1 tab daily [Active]; icosapent ethyl 1 gram Oral capsule 2 caps 2 times per day [Active]; Decara 625 mcg (25 Oral capsule 1 cap every 2 weeks [Active]; - PMHx: 12:18 Elevated Triglycerides; enlarged prostate; Hypercholesterolemia; Hypertensive disorder; tm6 Hypothyroidism; 12:20 lymphoma; tm6 - PSHx: 12:18 cardiac stents; tm6 - Immunization history:: Flu vaccine is not up to date. - Infectious Disease History:: Denies. - Social history:: Smoking status: Patient denies any tobacco usage or history of. - Family history:: not pertinent. - Hospitalizations: : No recent hospitalization is reported. ROS: 12:47 Constitutional: Negative for fever, chills, and weight loss, Cardiovascular: Negative rn for chest pain, palpitations, and edema, Respiratory: Negative for shortness of breath, cough, wheezing, and pleuritic chest pain, Abdomen/GI: Negative for abdominal pain, nausea, vomiting, diarrhea, and constipation, Back: Negative for injury and pain, : Positive for hematuria MS/Extremity: Negative for injury and deformity, Neuro: Negative for headache, weakness, numbness, tingling, and seizure, Exam: 12:47 Constitutional: This is a well developed, well nourished patient who is awake, alert, rn and in no acute distress. Abdomen/GI: Soft, non-tender Vital Signs: 12:18 Pulse 63; Resp 16; Pulse Ox 99% on R/A; tm6 12:20 BP 171 / 84; MAP 110 mmHg; Weight 84.82 kg; Height 5 ft. 4 in. ; tm6 14:36 BP 157 / 75; Pulse 71; Resp 16; Pulse Ox 99% ; bp 12:20 Body Mass Index 32.10 (84.82 kg, 162.56 cm) tm6 MDM: 12:06 Medical Screening Exam initiated rn 13:55 Differential diagnosis: Savage catheter problem. Data reviewed: vital signs, nurses rn notes, lab test result(s), and as a result, I will discharge patient. Counseling: I had a detailed discussion with the patient and/or guardian regarding the historical points, exam findings, and any diagnostic results supporting the discharge/admit diagnosis, lab results, the need for outpatient follow up, to return to the emergency department if symptoms worsen or persist or if there are any questions or concerns that arise at home. Special discussion: I discussed with the patient/guardian in detail that at this point there is no indication for admission to the hospital. It is understood, however, that if the symptoms persist or worsen the patient needs to return immediately for re-evaluation. ED course: Patient' urines cleared after irrigation by nursing staff. No clots. Very lightly blood-tinged at this time. Normal H\T\H. Normal WBC.. 05/05 12:27 Order name: CBC with Diff; Complete Time: 13:52 rn 05/05 12:27 Order name: Basic Metabolic Panel; Complete Time: 13:52 rn 05/05 12:27 Order name: Protime (+inr); Complete Time: 13:52 rn 05/05 12:27 Order name: Ptt, Activated; Complete Time: 13:52 rn 05/05 12:27 Order name: Bladder Irrigation; Complete Time: 13:15 rn 05/05 12:27 Order name: IV Start; Complete Time: 13:02 rn Administered Medications: No medications were administered Disposition Summary: 05/05/24 13:58 Discharge Ordered Notes: Location: Home rn Problem: new rn Symptoms: have improved rn Condition: Stable rn Diagnosis - Hematuria, unspecified rn Followup: rn - With: Private Physician - When: As needed - Reason: Recheck today's complaints, Re-evaluation by your physician Discharge Instructions: - Discharge Summary Sheet rn - Indwelling Urinary Catheter Care, Adult rn - Hematuria, Adult rn Forms: - Medication Reconciliation Form rn - Antibiotic internet programmer - Prescription Opioid Use rn - Patient Portal Instructions rn - Leadership Thank You Letter rn Signatures: Dispatcher [employer] Conor Keller MD MD rn Masterson, Tawney, RN RN tm6
[2024-05-05 14:51] VITALS: O2SAT 99
[2024-05-05 14:54] VITALS: BP 157/75
== END 2024-05-05 14:37 | disposition home or self-care (01) ==
LOC: ER 11:59
DX: R31.9 Hematuria, unspecified (principal); Z79.01 Long term (current) use of anticoagulants; Z79.82 Long term (current) use of aspirin; Z95.818 Presence of other cardiac implants and grafts
CPT/HCPCS: 36415; 80048; 85025; 85610; 85730; 99283

== ENCOUNTER 2025-02-22 07:26 | Day surgery (SDC) | payer OTHER ==
[2025-02-16 10:11] LABS: Absolute Lymphocytes (CBC) 1.2 K/uL (0.7-4.9); Hematocrit 42.3 % (39.6-49.0); Hemoglobin 14.7 g/dL (13.6-17.9); MCH 31.0 pg (27.0-35.0); MCHC 34.9 g/dL (32.0-36.0); MCV 89.0 fL (80-100); MPV 8.4 fL (7.6-11.3); Nucleated RBC Absolute Count 0.0 (0-0); Nucleated Red Blood Cells % 0.0 % (0-0); RBC Red Blood Cell Count 4.75 M/uL (4.33-5.43); White Blood Count 5.10 thou/uL (4.3-10.9)
--- NOTE | 2025-02-16 10:13 | RAD REPORT ---
EXAM: Chest Pa And Lat (2 Views) HISTORY: 84 years Male Pre-op pending urolift COMPARISON: 12/13/2010 FINDINGS: LUNGS/PLEURA: The lungs are clear. No pleural effusions or pneumothorax. No pulmonary edema. CARDIAC/MEDIASTINUM: Mild cardiomegaly UPPER ABDOMEN: No significant abnormality. BONES: No acute abnormality. LINES/TUBES/OTHER: N/A IMPRESSION: No evidence of acute cardiopulmonary disease.
[2025-02-16 10:16] LABS: Sqamous Epithelial <5 /HPF (None Seen); Urine Culture Reflex Order REFLEXED; Urine Microscopic Reflex YN ORDER UMIC
[2025-02-16 10:25] LABS: Anion Gap 10.4 mEq/L (5.0-15.0); BUN Blood Urea Nitrogen 19.0 mg/dL (7-18); Glucose Level 118.0 mg/dL (74-106); Potassium 3.4 mEq/L (3.5-5.1)
[2025-02-22] MEDS: Ringers Lactate 1,000 ML IV ONE (07:50)
[2025-02-22 08:06] LABS: PT Prothrombin Time 14.0 SECONDS (10-13.0); PTT, Activated Partial Thromb 36.8 SECONDS (27.2-37.4); Protime INR 1.25
[2025-02-22] MEDS ORDERED: ONDANSETRON 4 MG/2 ML VIAL ONE (09:25)
[2025-02-22] MEDS ORDERED: FENTANYL CITR 100 MCG/2 ML ONE (09:25)
[2025-02-22] MEDS ORDERED: LIDOCAINE 1% MPF 5 ML VIAL ONE (09:25)
[2025-02-22] MEDS ORDERED: EPHEDRINE SULF 50 MG/ML VIAL ONE (09:50)
[2025-02-22] MEDS: CEFAZOLIN SODIUM 2 GM/VIAL ONE (09:55)
[2025-02-22] MEDS ORDERED: GLYCOPYRROLATE 0.2 MG/ML SYR ONE (09:56)
--- NOTE | 2025-02-22 11:56 | P.OP ---
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 He subsequently passed a voiding trial with resumption of medical therapy, but had large volume incomplete emptying. After evaluation, despite his history of prior TURP in the remote past, there was significant regrowth of adenoma. Given his need for chronic anticoagulation using Eliquis and his advanced age with signs of cognitive decline, the prostatic urethral lift was selected as an approach designed to be minimally invasive and quickest to being able to resume his oral anticoagulation. Procedure note: The patient was consented in the preoperative holding area before being transferred to the operative suite where general anesthesia was induced. He was given Ancef 2 g IV antimicrobial prophylaxis, and pneumoboots were provided on his right lower extremity for DVT prophylaxis. He was placed in the lithotomy position, padded and secured to the table appropriately. His genitalia was prepped with Hibiclens and he was draped in standard fashion. The case was begun using the 20 [place] UroLift sheath and a visual obturator to traverse the urethra and navigate beyond adenomatous regrowth of tissue asymmetrically along the prostatic urethra before ultimately entering the bladder. Some of that adenoma was hanging over from the left anterior lateral prostate at the bladder neck as well as throughout the mid gland and apex. His bladder was decompressed of fluid and urine, and I switched the visual obturator for the first UroLift delivery device and an implant. That first implant was targeted at the patient's left lateral wall anteriorly at about the 1 o'clock position at about 1.5 to 2 cm distal to the bladder neck opening. The device was angled about 15 degrees against the tissue in that location and the trigger was pulled once delivering the needle through the substance of the prostate. I then compressed the tissue and additional 15 degrees to ensure the tip of the needle situated outside the capsule of the prostate before pulling the trigger a second time deploying the capsular tab and partially retracting the needle. A third pull of the trigger did completely retract the needle and begin to tension the suture. I then advanced the scope back toward the midline and 2 to 3 mm toward the bladder neck opening at which point the white line of the monofilament was centered in the delivery bay and the positioning of the urethral end piece would be within the bladder neck opening. As a result, a fourth pull of the trigger was performed deploying the urethral end piece which did nicely lateralize the tissue in that location. I then surveyed the channel created using a visual obturator, and there was still a component of intraluminal tissue anterolaterally at the bladder neck on the left side which I determined to come back to at a later time. I then turned my attention to the patient's right lateral wall at the bladder neck about 1.5 to 2 cm distal to that. Using a standard UL2 device, I went through the sequence of steps described above in that location at about the 11 o'clock position, but unfortunately after the second trigger pull, there was evidence of likely pull through of the implant. I completed the sequences accordingly, and no implant was delivered. As a result, I left that tissue alone and turned my attention to the patient's left side again, and this time using a UL2 ATC device with the wings used to try to grasp the adenoma intruding into the bladder lumen and pull it into the prostatic urethra anterolaterally in a stacked fashion above the previously placed implant, to avoid the pull-through that I experienced on the patient's right side, this time I compressed the tissue a little bit further, likely about 20 degrees with the ATC device, and I began the sequence of trigger pulls. After the first trigger pull landed with a thawed, suggestive of the possibility of a bone strike, I proceeded with trigger pull #2 and 3 until it became clear the suture was not within the delivery bay. As a result, since this was clearly a bone strike, I removed the device and performed trigger pull #4, and delivered the urethral sales market leader outside of the body. I then returned with now a fourth implant, as standard UL2 device placed in a stacked fashion to elevate the tissue at the bladder neck on the left side in that location. Interestingly, the intraluminal projecting component of the prostate tissue was no longer apparent after the attempted placement of the ATC in that location. Now, after 4 implants were attempted, to successfully placed due to a pull-through on the patient's right and a bone strike on the patient left, I then turned my attention to the apex where I placed a 5th implant at the apex at the 3 o'clock position on the left side before placing a 6th implant at the level of the verumontanum on the right side at the 9 o'clock position. This did successfully separate the apex, but it revealed significant nodular tissue that was emanating from the posterolateral aspect of the prostate bilaterally proximal to the implants placed at the verumontanum, now evident, which was not evident before. As a result, I then utilized another UL2 ATC device to try to grasp that adenomatous intrusion that was indeed obstructing the prostatic urethral lumen as evidenced with the visual obturator, and lateralize it angling the scope 15 degrees to the patient's right lateral before going through the sequence of trigger pulls. Again, unfortunately, despite what should have been adequate lateralization of the tissue, it was evident the implant pulled through; so I left that in place and turned my attention back to the patient's left side where adenoma was now intruding following the placement of the apical implant on the left and in fact causing functional obstruction of the prostatic urethral lumen as evidenced by leaving his bladder full and attempting to allow passive decompression via the cystoscope, which did not occur. As such, I utilized now another UL2 ATC device, the 8th implant used, to grab that inferior lateral adenomatous intruding tissue extending from the patient's apical mid gland on the left, and I was able to successfully lateralize that tissue. Again, I utilized a visual obturator to surveyed the channel created, and I noted that despite placing that seventh implant, there was still significant intraurethral intrusion of adenoma emanating from both sides, and when I attempted passive decompression via the scope, obstruction was clearly still present. As a result, I then turned my attention back to the patient's right apical mid gland where I utilized a 9th UL 2 ATC device to again grasp this tissue and tach the intraluminally obstructing tissue off to the patient's right. Surveying the channel created yet again, there was still a degree of adenomatous intrusion that seemed to fall around each of the implants placed inferior laterally intruding into the prostatic urethral lumen. In fact, the last 2 implants only placed because there was demonstrable residual obstruction from adenoma that would fall around the implants placed and obstruct the urethral lumen, functionally evidenced by lack of passive outflow when situated at the verumontanum. However in the end, I surveyed the channel, and while there was a partial continuous anterior channel visible, widely patent at the bladder neck but only partially patent within the apical mid gland, largely owing to adenoma intruding despite the implants placed on the patient's right side, of which there were a total of 3 successfully placed secondary to 2 pull-through's on that side, but I deemed that an attempt at further implants would unlikely achieve a significantly different outcome as the adenoma would continue to just fall around the implants placed, which seem to be the nature of his disease. As a result, I placed a 20 [place] catheter into his bladder and irrigated his bladder with saline to ensure no clots and until the hematuria was light pink. I then took him out of the lithotomy position after the catheter was connected to a leg bag, and he was transferred to a stretcher before being transferred to the recovery room after being awakened from general anesthesia. Complications: None Discharge disposition: We will plan a voiding trial tomorrow morning in the urology clinic per routine. Given the largely minimally satisfactory visible outcome associated with the attempts at UroLift on this patient's tissue, if he still has significant volume retention, future consideration to actual resection/TURP may be required.
[2025-02-22] MEDS ORDERED: OXYBUTYNIN ER 5 MG TAB PO ONE (12:04)
[2025-02-22] MEDS ORDERED: PHENAZOPYRIDINE 100MG TAB PO ONE (13:11)
[2025-02-22] MEDS ORDERED: TRAMADOL 37.5mg/APAP 325mg PER TAB ONE (13:11)
[2025-02-22] MEDS: TRAMADOL 37.5mg/APAP 325mg PER TAB PO ONE (13:16)
[2025-02-22] MEDS: PHENAZOPYRIDINE 100MG TAB PO ONE (13:17)
[2025-02-22 13:51] VITALS: TEMP 97
[2025-02-22 14:07] VITALS: BP 130/70; O2SAT 96
[2025-02-23] MEDS ORDERED: BISACODYL 10 MG RECTAL SUPP PR SCH (09:00)
== END 2025-02-22 14:00 | disposition home or self-care (01) ==
LOC: OR 07:26
PROVIDERS: ATTEND Urology
PROC: 0T7D8DZ Dilation of Urethra with Intraluminal Device, Via Natural or Artificial Opening Endoscopic (ICD-10-PCS; principal; 2025-02-22 09:00)
DX: N40.1 Benign prostatic hyperplasia with lower urinary tract symptoms (principal); N13.8 Other obstructive and reflux uropathy; R33.8 Other retention of urine; R39.14 Feeling of incomplete bladder emptying; Z79.01 Long term (current) use of anticoagulants
CPT/HCPCS: 87088; 85025; 81001; 87086; 80048; 36415; 85610; 85730; 71046; 52441; 52442 ×6; J2704; J2003; J3010; J1100; J2405; J7120